=== PATIENT | male | born 1945 | race Caucasian/White ===

== ENCOUNTER 2022-11-27 03:09 | Emergency (ER) | payer MEDICARE ==
--- OUTSIDE RECORDS SUMMARY | 2022-11-27 03:13 | XMS REPORT | Continuity of Care Document ---
:[address] [facility] t Address [address] [place] [address] Care Team Providers Name Role Phone Juan Antonio Butler Attending Clinician Unavailable David Gray Attending Clinician Marina_Adolfo Attending Clinician Unavailable Sindy Montero Attending Clinician Mayur Attending Clinician Unavailable Chhaya Montero Attending Clinician Marina_S Admitting Clinician Unavailable BWsb Admitting Clinician Unavailable Payers Payer Name Policy Type Policy Effective Date Expiration Date Sour ce Number [employer] [id number] 2021 (MEDICARE 00:00:00 REPLACEMENT HMO) [place] [address] [id number] 2021 [facility] 00:00:00 - [facility] Problems Condition Condition Condition Status Onset Resolution Last Treating Co mments Source Name Details Category Date Date Treatment Clinician Date Malignant Malignant Problem 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 urinary Medical tract Center symptoms, symptom details unspecifie d [id number] Type 2 Problem Common diabetes [facility] mellitus - [facility] with [facility] long-term current use of insulin Tobacco Nicotine Problem Common user dependence [facility] , - [facility] cigarettes [facility] uncomplica Medica l [facility] [id number] Mixed Problem Common hyperlipid [facility] emia - [facility] [id number] Malignant Problem Com mon neoplasm Spirit of colon, - [facility]I unspecifie [facility] d part [facility] colon [facility] Malignant Malignant Problem Com mon tumor of neoplasm [facility] anus of anus [facility] Allergies, Adverse Reactions, Alerts This patient has no known allergies or adverse reactions. Social History Social Habit Start Date Stop Date Quantity Comments Source History of Tobacco Current Smoker Co mmon [facility] - [facility] Use [facility] Sex Assigned At Com mon [facility] - [facility] Smoking Status Start Date Stop Date Source Current Smoker 2022-09-30 00:00:00 [facility] - [facility] Medications Ordered Filled Start Stop Current Ordering Indication Dosage Frequency Signature Comments Components Source Medication Medication Date Date Medication? Clinician (SIG) Name Name Vitamin C Vitamin C No 1{table QD Vitamin C 1000 MG 1000 MG t} 1000 MG Vitamin D3 Vitamin D3 No Vitamin D3 125 MCG 125 MCG 125 MCG (5000 UT) (5000 UT) (5000 UT) Hyoscyamine Hyoscyamine No 1{table 6xD Hyoscyamin Sulfate Sulfate t_as_ne e Sulfate 0.125 MG 0.125 MG eded} 0.125 MG Tamsulosin Tamsulosin No 1{capsu QD Tamsulosin HCl 0.4 MG HCl 0.4 MG le} HCl 0.4 MG Super B Super B No Super B Complex Complex Complex Zinc 50 MG Zinc 50 MG No 1{table QD Zinc 50 MG t} cloNIDine cloNIDine No 1{table BID cloNIDine HCl 0.2 MG HCl 0.2 MG t} HCl 0.2 MG Ondansetron Ondansetron No 1{table QD Ondansetro 4 MG 4 MG t_on_ n 4 MG e_tongu e_and_a llow_to _dissol ve} Losartan Losartan No 1{table QD Losartan Potassium-H Potassium-H t} Potassium- CTZ 100-25 CTZ 100-25 HCTZ MG MG 100-25 MG Aspir-81 81 Aspir-81 81 No 1{table QD Aspir-81 MG MG t} 81 MG Bicalutamid Bicalutamid No 1{table QD Bicalutami e 50 MG e 50 MG t} de 50 MG metFORMIN metFORMIN No 1{table QD metFORMIN HCl 500 MG HCl 500 MG t_with_ HCl 500 MG a_meal} Atorvastati Atorvastati No 1{table QD Atorvastat n Calcium n Calcium t} in Calcium 20 MG 20 MG 20 MG amLODIPine amLODIPine No 1{table QD amLODIPine Besylate 5 Besylate 5 t} Besylate 5 MG MG MG Vitamin C Vitamin C No 1{table QD Vitamin C 1000 MG 1000 MG t} 1000 MG Vitamin D3 Vitamin D3 No Vitamin D3 125 MCG 125 MCG 125 MCG (5000 UT) (5000 UT) (5000 UT) Hyoscyamine Hyoscyamine No 1{table 6xD Hyoscyamin Sulfate Sulfate t_as_ne e Sulfate 0.125 MG 0.125 MG eded} 0.125 MG Tamsulosin Tamsulosin No 1{capsu QD Tamsulosin HCl 0.4 MG HCl 0.4 MG le} HCl 0.4 MG Super B Super B No Super B Complex Complex Complex Zinc 50 MG Zinc 50 MG No 1{table QD Zinc 50 MG t} cloNIDine cloNIDine No 1{table BID cloNIDine HCl 0.2 MG HCl 0.2 MG t} HCl 0.2 MG Ondansetron Ondansetron No 1{table QD Ondansetro 4 MG 4 MG t_on_th n 4 MG e_tongu e_and_a llow_to _dissol ve} Losartan Losartan No 1{table QD Losartan Potassium-H Potassium-H t} Potassium- CTZ 100-25 CTZ 100-25 HCTZ MG MG 100-25 MG Tamsulosin Tamsulosin No 1{capsu QD Tamsulosin HCl 0.4 MG HCl 0.4 MG le} HCl 0.4 MG metFORMIN metFORMIN No 1{table QD metFORMIN HCl 500 MG HCl 500 MG t_with_ HCl 500 MG a_meal} Bicalutamid Bicalutamid No 1{table QD Bicalutami e 50 MG e 50 MG t} de 50 MG hydroCHLORO hydroCHLORO No 1{table QD hydroCHLOR thiazide 25 thiazide 25 t_in_th Othiazide MG MG e_morni 25 MG ng} Calcium Calcium No Calcium Aspir-81 81 Aspir-81 81 No 1{table QD Aspir-81 MG MG t} 81 MG Vitamin D3 Vitamin D3 No Vitamin D3 125 MCG 125 MCG 125 MCG (5000 UT) (5000 UT) (5000 UT) Losartan Losartan No 1{table QD Losartan Potassium-H Potassium-H t} Potassium- CTZ 100-25 CTZ 100-25 HCTZ MG MG 100-25 MG cloNIDine cloNIDine No 1{table BID cloNIDine HCl 0.2 MG HCl 0.2 MG t} HCl 0.2 MG Super B Super B No Super B Complex Complex Complex Vitamin C Vitamin C No 1{table QD Vitamin C 1000 MG 1000 MG t} 1000 MG Hyoscyamine Hyoscyamine No 1{table 6xD Hyoscyamin Sulfate Sulfate t_as_ne e Sulfate 0.125 MG 0.125 MG eded} 0.125 MG amLODIPine amLODIPine No 1{table QD amLODIPine Besylate 5 Besylate 5 t} Besylate 5 MG MG MG Zinc 50 MG Zinc 50 MG No 1{table QD Zinc 50 MG t} Ondansetron Ondansetron No 1{table QD Ondansetro 4 MG 4 MG t_on_th n 4 MG e_tongu e_and_a llow_to _dissol ve} Atorvastati Atorvastati No 1{table QD Atorvastat n Calcium n Calcium t} in Calcium 20 MG 20 MG 20 MG Hyoscyamine Hyoscyamine No 1{table 6xD Hyoscyamin Sulfate Sulfate t_as_ne e Sulfate 0.125 MG 0.125 MG eded} 0.125 MG cloNIDine cloNIDine No 1{table BID cloNIDine HCl 0.2 MG HCl 0.2 MG t} HCl 0.2 MG amLODIPine amLODIPine No 1{table QD amLODIPine Besylate 5 Besylate 5 t} Besylate 5 MG MG MG Calcium Calcium No Calcium Atorvastati Atorvastati No 1{table QD Atorvastat n Calcium n Calcium t} in Calcium 20 MG 20 MG 20 MG Zinc 50 MG Zinc 50 MG No 1{table QD Zinc 50 MG t} Tamsulosin Tamsulosin No 1{capsu QD Tamsulosin HCl 0.4 MG HCl 0.4 MG le} HCl 0.4 MG hydroCHLORO hydroCHLORO No 1{table QD hydroCHLOR thiazide 25 thiazide 25 t_in_th Othiazide MG MG e_morni 25 MG ng} metFORMIN metFORMIN No 1{table QD metFORMIN HCl 500 MG HCl 500 MG t_with_ HCl 500 MG a_meal} Vitamin C Vitamin C No 1{table QD Vitamin C 1000 MG 1000 MG t} 1000 MG Aspir-81 81 Aspir-81 81 No 1{table QD Aspir-81 MG MG t} 81 MG Losartan Losartan No 1{table QD Losartan Potassium-H Potassium-H t} Potassium- CTZ 100-25 CTZ 100-25 HCTZ MG MG 100-25 MG Vitamin D3 Vitamin D3 No Vitamin D3 125 MCG 125 MCG 125 MCG (5000 UT) (5000 UT) (5000 UT) Super B Super B No Super B Complex Complex Complex Ondansetron Ondansetron No 1{table QD Ondansetro 4 MG 4 MG t_on n 4 MG e_tongu e_and_a llow_to _dissol ve} Multivitami Multivitami No Multivitam n n in Bicalutamid Bicalutamid No 1{table QD Bicalutami e 50 MG e 50 MG t} de 50 MG Atorvastati Atorvastati No 1{table QD Atorvastat n Calcium n Calcium t} in Calcium 20 MG 20 MG 20 MG hydroCHLORO hydroCHLORO No 1{table QD hydroCHLOR thiazide 25 thiazide 25 t_in_ Othiazide MG MG e_morni 25 MG ng} Zinc 50 MG Zinc 50 MG No 1{table QD Zinc 50 MG t} Hyoscyamine Hyoscyamine No 1{table 6xD Hyoscyamin Sulfate Sulfate t_as_ne e Sulfate 0.125 MG 0.125 MG eded} 0.125 MG cloNIDine cloNIDine No 1{table BID cloNIDine HCl 0.2 MG HCl 0.2 MG t} HCl 0.2 MG amLODIPine amLODIPine No 1{table QD amLODIPine Besylate 5 Besylate 5 t} Besylate 5 MG MG MG Calcium Calcium No Calcium Bicalutamid Bicalutamid No 1{table QD Bicalutami e 50 MG e 50 MG t} de 50 MG Aspir-81 81 Aspir-81 81 No 1{table QD Aspir-81 MG MG t} 81 MG Vitamin D3 Vitamin D3 No Vitamin D3 125 MCG 125 MCG 125 MCG (5000 UT) (5000 UT) (5000 UT) Ondansetron Ondansetron No 1{table QD Ondansetro 4 MG 4 MG t_on_th n 4 MG e_tongu e_and_a llow_to _dissol ve} Vitamin C Vitamin C No 1{table QD Vitamin C 1000 MG 1000 MG t} 1000 MG Tamsulosin Tamsulosin No 1{capsu QD Tamsulosin HCl 0.4 MG HCl 0.4 MG le} HCl 0.4 MG Super B Super B No Super B Complex Complex Complex metFORMIN metFORMIN No 1{table QD metFORMIN HCl 500 MG HCl 500 MG t_with_ HCl 500 MG a_meal} Losartan Losartan No 1{table QD Losartan Potassium-H Potassium-H t} Potassium- CTZ 100-25 CTZ 100-25 HCTZ MG MG 100-25 MG Multivitami Multivitami No Multivitam n n in Atorvastati Atorvastati No 1{table QD Atorvastat n Calcium n Calcium t} in Calcium 20 MG 20 MG 20 MG hydroCHLORO hydroCHLORO No 1{table QD hydroCHLOR thiazide 25 thiazide 25 t_in_th Othiazide MG MG e_morni 25 MG ng} Zinc 50 MG Zinc 50 MG No 1{table QD Zinc 50 MG t} Hyoscyamine Hyoscyamine No 1{table 6xD Hyoscyamin Sulfate Sulfate t_as_ne e Sulfate 0.125 MG 0.125 MG eded} 0.125 MG cloNIDine cloNIDine No 1{table BID cloNIDine HCl 0.2 MG HCl 0.2 MG t} HCl 0.2 MG amLODIPine amLODIPine No 1{table QD amLODIPine Besylate 5 Besylate 5 t} Besylate 5 MG MG MG Calcium Calcium No Calcium Bicalutamid Bicalutamid No 1{table QD Bicalutami e 50 MG e 50 MG t} de 50 MG Aspir-81 81 Aspir-81 81 No 1{table QD Aspir-81 MG MG t} 81 MG Vitamin D3 Vitamin D3 No Vitamin D3 125 MCG 125 MCG 125 MCG (5000 UT) (5000 UT) (5000 UT) Ondansetron Ondansetron No 1{table QD Ondansetro 4 MG 4 MG t_on_ n 4 MG e_tongu e_and_a llow_to _dissol ve} Vitamin C Vitamin C No 1{table QD Vitamin C 1000 MG 1000 MG t} 1000 MG Vitamin D3 Vitamin D3 No Vitamin D3 125 MCG 125 MCG 125 MCG (5000 UT) (5000 UT) (5000 UT) Tamsulosin Tamsulosin No 1{capsu QD Tamsulosin HCl 0.4 MG HCl 0.4 MG le} HCl 0.4 MG Super B Super B No Super B Complex Complex Complex metFORMIN metFORMIN No 1{table QD metFORMIN HCl 500 MG HCl 500 MG t_with_ HCl 500 MG a_meal} Losartan Losartan No 1{table QD Losartan Potassium-H Potassium-H t} Potassium- CTZ 100-25 CTZ 100-25 HCTZ MG MG 100-25 MG Multivitami Multivitami No Multivitam n n in Atorvastati Atorvastati No 1{table QD Atorvastat n Calcium n Calcium t} in Calcium 20 MG 20 MG 20 MG Super B Super B No Super B Complex Complex Complex Aspir-81 81 Aspir-81 81 No 1{table QD Aspir-81 MG MG t} 81 MG metFORMIN metFORMIN No 1{table QD metFORMIN HCl 500 MG HCl 500 MG t_with_ HCl 500 MG a_meal} Losartan Losartan No 1{table QD Losartan Potassium-H Potassium-H t} Potassium- CTZ 100-25 CTZ 100-25 HCTZ MG MG 100-25 MG Zinc 50 MG Zinc 50 MG No 1{table QD Zinc 50 MG t} Vitamin C Vitamin C No 1{table QD Vitamin C 1000 MG 1000 MG t} 1000 MG cloNIDine cloNIDine No 1{table BID cloNIDine HCl 0.2 MG HCl 0.2 MG t} HCl 0.2 MG amLODIPine amLODIPine No 1{table QD amLODIPine Besylate 5 Besylate 5 t} Besylate 5 MG MG MG Tamsulosin Tamsulosin No 1{capsu QD Tamsulosin HCl 0.4 MG HCl 0.4 MG le} HCl 0.4 MG amLODIPine amLODIPine No 1{table QD amLODIPine Besylate 5 Besylate 5 t} Besylate 5 MG MG MG Atorvastati Atorvastati No 1{table QD Atorvastat n Calcium n Calcium t} in Calcium 20 MG 20 MG 20 MG metFORMIN metFORMIN No 1{table QD metFORMIN HCl 500 MG HCl 500 MG t_with_ HCl 500 MG a_meal} Aspir-81 81 Aspir-81 81 No 1{table QD Aspir-81 MG MG t} 81 MG Super B Super B No Super B Complex Complex Complex cloNIDine cloNIDine No 1{table BID cloNIDine HCl 0.2 MG HCl 0.2 MG t} HCl 0.2 MG Vitamin D3 Vitamin D3 No Vitamin D3 125 MCG 125 MCG 125 MCG (5000 UT) (5000 UT) (5000 UT) Zinc 50 MG Zinc 50 MG No 1{table QD Zinc 50 MG t} Vitamin C Vitamin C No 1{table QD Vitamin C 1000 MG 1000 MG t} 1000 MG Losartan Losartan No 1{table QD Losartan Potassium-H Potassium-H t} Potassium- CTZ 100-25 CTZ 100-25 HCTZ MG MG 100-25 MG Tamsulosin Tamsulosin No 1{capsu QD Tamsulosin HCl 0.4 MG HCl 0.4 MG le} HCl 0.4 MG amLODIPine amLODIPine No 1{table QD amLODIPine Besylate 5 Besylate 5 t} Besylate 5 MG MG MG Atorvastati Atorvastati No 1{table QD Atorvastat n Calcium n Calcium t} in Calcium 20 MG 20 MG 20 MG metFORMIN metFORMIN No 1{table QD metFORMIN HCl 500 MG HCl 500 MG t_with_ HCl 500 MG a_meal} Aspir-81 81 Aspir-81 81 No 1{table QD Aspir-81 MG MG t} 81 MG Super B Super B No Super B Complex Complex Complex cloNIDine cloNIDine No 1{table BID cloNIDine HCl 0.2 MG HCl 0.2 MG t} HCl 0.2 MG Vitamin D3 Vitamin D3 No Vitamin D3 125 MCG 125 MCG 125 MCG (5000 UT) (5000 UT) (5000 UT) Zinc 50 MG Zinc 50 MG No 1{table QD Zinc 50 MG t} Vitamin C Vitamin C No 1{table QD Vitamin C 1000 MG 1000 MG t} 1000 MG Losartan Losartan No 1{table QD Losartan Potassium-H Potassium-H t} Potassium- CTZ 100-25 CTZ 100-25 HCTZ MG MG 100-25 MG Zinc 50 MG Zinc 50 MG No 1{table QD Zinc 50 MG t} Atorvastati Atorvastati No 1{table QD Atorvastat n Calcium n Calcium t} in Calcium 20 MG 20 MG 20 MG Aspir-81 81 Aspir-81 81 No 1{table QD Aspir-81 MG MG t} 81 MG Super B Super B No Super B Complex Complex Complex Vitamin D3 Vitamin D3 No Vitamin D3 125 MCG 125 MCG 125 MCG (5000 UT) (5000 UT) (5000 UT) amLODIPine amLODIPine No 1{table QD amLODIPine Besylate 5 Besylate 5 t} Besylate 5 MG MG MG Vitamin C Vitamin C No 1{table QD Vitamin C 1000 MG 1000 MG t} 1000 MG cloNIDine cloNIDine No 1{table BID cloNIDine HCl 0.2 MG HCl 0.2 MG t} HCl 0.2 MG Losartan Losartan No 1{table QD Losartan Potassium-H Potassium-H t} Potassium- CTZ 100-25 CTZ 100-25 HCTZ MG MG 100-25 MG Tamsulosin Tamsulosin No 1{capsu QD Tamsulosin HCl 0.4 MG HCl 0.4 MG le} HCl 0.4 MG metFORMIN metFORMIN No 1{table QD metFORMIN HCl 500 MG HCl 500 MG t_with_ HCl 500 MG a_meal} Aspir-81 81 Aspir-81 81 No 1{table QD Aspir-81 MG MG t} 81 MG Bicalutamid Bicalutamid No 1{table QD Bicalutami e 50 MG e 50 MG t} de 50 MG metFORMIN metFORMIN No 1{table QD metFORMIN HCl 500 MG HCl 500 MG t_with_ HCl 500 MG a_meal} Atorvastati Atorvastati No 1{table QD Atorvastat n Calcium n Calcium t} in Calcium 20 MG 20 MG 20 MG amLODIPine amLODIPine No 1{table QD amLODIPine Besylate 5 Besylate 5 t} Besylate 5 MG MG MG Tamsulosin Tamsulosin 2020- No 1{capsu QD Tamsulosin HCl 0.4 MG HCl 0.4 MG 12-28 le} HCl 0.4 MG 00:00 :00 Immunizations Ordered Immunization Filled Immunization Date Status Commen ts Source Name Name FluAD FluAD 2021-03-19 Completed [facility] 10:32:00 - [facility] FluAD FluAD 2021-03-19 Completed [facility] 10:32:00 - [facility] FluAD FluAD 2021-03-19 Completed [facility] 10:32:00 - [facility] FluAD FluAD 2021-03-19 Completed [facility] 10:32:00 - [facility] FluAD FluAD 2021-03-19 Completed [facility] 10:32:00 - [facility] FluAD FluAD 2021-03-19 Completed [facility] 10:32:00 - [facility] FluAD FluAD 2021-03-19 Completed [facility] 10:32:00 - [facility] FluAD FluAD 2021-03-19 Completed [facility] 10:32:00 - [facility] FluAD FluAD 2021-03-19 Completed [facility] 10:32:00 - [facility] FluAD FluAD 2021-03-19 Completed [facility] 10:32:00 - [facility] Vital Signs Vital Name Observation Time Observation Value Comments Source height 2022-03-31 10:20:00 70 [in_i] Common [facility] weight 2022-03-31 10:20:00 183 [lb_av] [facility] temperature 2022-03-31 10:20:00 97.7 [degF] [facility] bmi 2022-03-31 10:20:00 26.25 kg/m2 [facility] oximetry 2022-03-31 10:20:00 99 % [facility] respiratory rate 2022-03-31 10:20:00 18 /min Comm on [facility] blood pressure 2022-03-31 10:20:00 138 mm[Hg] Common [facility] - systolic [facility] blood pressure 2022-03-31 10:20:00 70 mm[Hg] Common [facility] - diastolic [facility] height 2021-07-13 09:20:00 70 [in_i] [facility] weight 2021-07-13 09:20:00 191.6 [lb_av] [facility] temperature 2021-07-13 09:20:00 97.9 [degF] Common [facility] bmi 2021-07-13 09:20:00 27.49 kg/m2 [facility] oximetry 2021-07-13 09:20:00 93 % [facility] respiratory rate 2021-07-13 09:20:00 16 /min Comm on [facility] blood pressure 2021-07-13 09:20:00 135 mm[Hg] Common [facility] - systolic [facility] blood pressure 2021-07-13 09:20:00 71 mm[Hg] Common [facility] - diastolic [facility] height 2021-06-16 08:40:00 70 [in_i] [facility] weight 2021-06-16 08:40:00 193.2 [lb_av] [facility] temperature 2021-06-16 08:40:00 97.7 [degF] Common S [facility] bmi 2021-06-16 08:40:00 27.72 kg/m2 Common S [facility] oximetry 2021-06-16 08:40:00 96 % Common [facility] respiratory rate 2021-06-16 08:40:00 16 /min Comm on [facility] blood pressure 2021-06-16 08:40:00 128 mm[Hg] Common [facility] - systolic [facility] blood pressure 2021-06-16 08:40:00 65 mm[Hg] Common [facility] - diastolic [facility] height 2021-03-04 11:00:00 70 [in_i] Common S [facility] weight 2021-03-04 11:00:00 186.6 [lb_av] [facility] temperature 2021-03-04 11:00:00 97.2 [degF] [facility] bmi 2021-03-04 11:00:00 26.77 kg/m2 [facility] S [facility] oximetry 2021-03-04 11:00:00 96 % [facility] respiratory rate 2021-03-04 11:00:00 17 /min Comm on [facility] blood pressure 2021-03-04 11:00:00 137 mm[Hg] Common [facility] - systolic [facility] blood pressure 2021-03-04 11:00:00 72 mm[Hg] [facility] diastolic [facility] Procedures This patient has no known procedures. Encounters Start End Encounter Admission Attending Care Care Encounter Source Date/Time Date/Time Type Type Clinicians Facility Department ID 2022-09-28 Outpatient Butler, STLMLC STLC [id number] Common 08:27:01 Juan Antonio [id number] [facility] 2022-03-29 Outpatient Butler, STLMLC STLC [id number] Common 10:39:02 Juan Antonio [id number] [facility] 2021-09-25 Outpatient Butler, STLMLC STLC [id number] Common 10:16:02 Juan Antonio [facility] 2021-07-01 Outpatient Butler, STLMLC STLC [id number] Common 14:33:31 Juan Antonio [facility] 2021-07-01 Outpatient Butler, STLMLC STLC [id number] Common 14:04:07 Juan Antonio [id number] [facility] 2022-07-12 2022-07-12 [id number] Co mmon 00:00:00 00:00:00 [facility] 2022-07-09 2022-07-09 CAV Salli [id number]. [id number]. CLAC [id number] [facility] 21:00:00 22:00:00 Fulminyohan [id number] Medical [id number] 2022-07-09 2022-07-09 Outpatient Fulminar_S DMG DMG [id number] [facility] 00:00:00 00:00:00 0203 [facility] 2022-07-09 2022-07-09 Outpatient Fulminar_S DMG DMG [id number] [facility] 00:00:00 00:00:00 0506 Medica l Group 2022-04-07 2022-04-07 CAV Vonja [id number]. [id number]. CLAC [id number] [facility] 14:00:00 14:30:00 Revisit: Winston [id number] Medical Gap [id number] Closure & [id number] Clinical Check-in 2022-04-06 2022-04-06 [facility]patient [facility] [id number] [facility] 00:00:00 00:00:00 1101 Medica l Group 2022-03-31 2022-03-31 OFFICE STLMLC STLMLC [id number] Co mmon 00:00:00 00:00:00 VISIT [facility] ESTAB PT - CHI LEVEL 4 [facility] 2022-01-27 2022-01-[address] [facility] [id number] [facility] 00:00:00 00:00:00 0824 Medica l Group 2021-12-18 2021-12-18 [facility] [id number] [facility] 06:13:00 06:13:00 0715 [facility] l [facility] 2021-11-03 2021-11-03 (TEL) STLMLC STLMLC [id number] Co mmon 00:00:00 00:00:00 [facility] 2021-10-14 2021-10-14 (TEL) STLMLC STLMLC [id number] Co mmon 00:00:00 00:00:00 [facility] 2021-10-05 2021-10-05 CAV Chhaya [id number]. [id number]. CLAC [id number] [facility] 19:30:00 20:30:00 [place] [id number] [facility] Medical [id number] 2021-07-13 2021-07-13 OFFICE STLMLC STLMLC [id number] Co mmon 00:00:00 00:00:00 VISIT [facility] ESTAB PT - [facility]I LEVEL 4 [facility] 2021-06-25 2021-06-25 (TEL) STLMLC STLMLC [id number] Co mmon 00:00:00 00:00:00 [facility] 2021-06-16 2021-06-16 PREV VISIT STLMLC STLMLC [id number] Common 00:00:00 00:00:00 EST AGE 66 Spi rit & OVER [facility] 2021-03-31 2021-03-31 (TEL) STLMLC STLMLC [id number] Co mmon 00:00:00 00:00:00 [facility] - [facility] 2021-03-19 2021-03-19 (INJ) STLMLC STLMLC [id number] Co mmon 00:00:00 00:00:00 Injection Spir it - CHI [facility] 2021-03-04 2021-03-[address] [facility] [facility] [id number] Co mmon 00:00:00 00:00:00 VISIT NEW Spir it PT LEVEL 3 - [facility] 2021-02-18 2021-02-18 [facility]patient [facility] [id number] [facility] 08:00:00 08:00:00 0915 Medica l Group 2021-01-09 2021-01-09 [facility]patient [facility] [id number] [facility] 11:00:00 11:00:00 0806 Medica l Group Results Test Description Test Time Test Comments Results Result Comments Source Lipid Panel With LDL/HDL Ratio 2021-06-16 00:00:00 Test Item Value Reference Range Interpretation Comme nts Cholesterol, Total (test code = 2093-3) 142 100-199 Triglycerides (test code = 2571-8) 82 0-149 HDL Cholesterol (test code = 2085-9) 52 >39 Hepatitis Panel (4)2021-06-16 00:00:00 Test Item Value Reference Range Interpretation Comments Hep A Ab, IgM (test code = 85748-1) Negative Negative HBsAg Screen (test code = 5196-1) Negative Negative Hep B Core Ab, IgM (test code = Negative Negative 12637-2) UA/M w/rflx Culture, [id number] 00:00:00 Test Item Value Reference Range Interpretation Comments Specific [place] (test code = 1.019 1.005-1.030 2965-2) pH (test code = 5803-2) 6.5 5.0-7.5 Urine-Color (test code = 5778-6) Yellow Yellow Appearance (test code = 5767-9) Clear Clear WBC Esterase (test code = 5799-2) Negative Negative Protein (test code = 12742-3) Negative Negative/Trace Glucose (test code = 2349-9) Negative Negative Ketones (test code = 2514-8) Negative Negative Occult Blood (test code = 5794-3) Negative Negative Bilirubin (test code = 5770-3) Negative Negative Urobilinogen,Semi-Qn (test code = 0.2 0.2-1.0 ) Nitrite, Urine (test code = Negative Negative 5802-4) Microscopic Examination (test code See below: = 23819-8) Urinalysis Reflex (test code = UNLOINC) Prostate-Specific Ag, [id number] 00:00:00 Test Item Value Reference Range Interpretation Comments Prostate Specific Ag (test code = 1.6 0.0-4.0 2857-1) Hemoglobin [id number] 00:00:00 Test Item Value Reference Range Interpretation Comments Hemoglobin A1c (test code = 4548-4) 6.5 4.8-5.6 Comp. Metabolic Panel (14) ([facility])2021-06-16 00:00:00 Test Item Value Reference Range Interpretation Comments Glucose (test code = 2345-7) 171 65-99 BUN (test code = 3094-0) 19 8-27 Creatinine (test code = 2160-0) 0.87 0.76-1.27 eGFR If NonAfricn Am (test code = 85 >59 09832-0) eGFR If Africn Am (test code = 97245-7) 98 >59 BUN/Creatinine Ratio (test code = 03-29 3097-3) Sodium (test code = 2951-2) 140 134-144 Potassium (test code = 2823-3) 3.8 3.5-5.2 Chloride (test code = 2075-0) 101 96-106 Carbon Dioxide, Total (test code = 27 -29 2028-02) Calcium (test code = 91801-3) 9.1 8.6-10.2 Protein, Total (test code = 2885-2) 7.0 6.0-8.5 Albumin (test code = 1751-7) 4.1 3.7-4.7 Globulin, Total (test code = 48727-4) 2.9 1.5-4.5 A/G Ratio (test code = 1759-0) 1.4 1.2-2.2 Bilirubin, Total (test code = 1974-) 1.0 0.0-1.2 Alkaline Phosphatase (test code = 62 44-121 6768-6) AST (SGOT) (test code = 1920-8) 15 0-40 ALT (SGPT) (test code = 1742-6) 19 0-44 Uric Acid, [id number] 00:00:00 Test Item Value Reference Range Interpretation Comments Uric Acid (test code = 3084-1) 5.0 3.8-8.4 CBC With Differential/[id number] 00:00:00 Test Item Value Reference Range Interpretation Comments WBC (test code = 6690-2) 5.6 3.4-10.8 RBC (test code = 789-8) 4.51 4.14-5.80 Hemoglobin (test code = 718-7) 13.1 13.0-17.7 Hematocrit (test code = 4544-3) 39.6 37.5-51.0 MCV (test code = 787-2) 88 79-97 MCH (test code = 785-6) 29.0 26.6-33.0 MCHC (test code = 786-4) 33.1 31.5-35.7 RDW (test code = 788-0) 12.6 11.6-15.4 Platelets (test code = 777-3) 151 150-450 Neutrophils (test code = 770-8) 61 Not Estab. Lymphs (test code = 736-9) 28 Not Estab. Monocytes (test code = 5905-5) 6 Not Estab. Eos (test code = 713-8) 4 Not Estab. Basos (test code = 706-2) 1 Not Estab. Immature Cells (test code = UNLOINC) Neutrophils (Absolute) (test code = 3.4 1.4-7.0 751-8) Lymphs (Absolute) (test code = 731-0) 1.6 0.7-3.1 Monocytes(Absolute) (test code = 742-7) 0.3 0.1-0.9 Eos (Absolute) (test code = 711-2) 0.2 0.0-0.4 Baso (Absolute) (test code = 704-7) 0.0 0.0-0.2 Immature Granulocytes (test code = 0 Not Estab. 55347-3) Immature Grans (Abs) (test code = 0.0 0.0-0.1 51223-6) NRBC (test code = 94084-7) Hematology Comments: (test code = 96884-6) TSH reflex to [id number] 00:00:00 Test Item Value Reference Range Interpretation Comments TSH (test code = 78261-7) 0.933 0.450-4.500
[2022-11-27 03:53] LABS: Absolute Lymphocytes (CBC) 0.7 K/uL (0.7-4.9); Hematocrit 45.3 % (39.6-49.0); MCV 89.4 fL (80-100); MPV 7.6 fL (7.6-11.3); RBC Red Blood Cell Count 5.06 M/uL (4.33-5.43)
[2022-11-27] MEDS ORDERED: MORPHINE 4 MG/ML SYR ONE ×2 (03:59→07:01)
[2022-11-27] MEDS ORDERED: ONDANSETRON 4 MG/2 ML VIAL ONE ×2 (04:00→07:01)
[2022-11-27] MEDS ORDERED: NA CHLORIDE 0.9% 1,000 ML ONE ×2 (04:00→11:39)
[2022-11-27] MEDS ORDERED: FAMOTIDINE 20 MG/2 ML VIAL IV ONE (04:00)
[2022-11-27 04:07] LABS: Specific Gravity 1.018 (1.005-1.030); Urine Bacteria <20 /HPF (<20); Urine Bilirubin NEGATIVE (Negative); Urine Blood Negative (Negative); Urine Clarity Extremely Turbid (Clear); Urine Color Yellow (Yellow); Urine Glucose NEGATIVE (Negative); Urine Mucus Slight /HPF (None Seen); Urine Protein TRACE (Negative); Urine RBC <5 /HPF (None Seen); Urine Urobilinogen Normal (Normal)
[2022-11-27 04:09] LABS: Albumin 4.2 g/dL (3.4-5.0); Bilirubin Total 1.4 mg/dL (0.2-1.0); Potassium 3.4 mEq/L (3.5-5.1); Protein, Total 8.8 g/dL (6.4-8.2)
--- NOTE | 2022-11-27 06:47 | ER ---
Nurse's Notes [facility] Name: Jonnie Haney Age: 77 yrs Sex: Male : 1945 Arrival Date: 11/27/2022 Time: 03:09 Bed 15 Private MD: Diagnosis: Acute small bowel obstruction. Mesenteric edema.;Abdominal pain, Generalized Presentation: 11/27 03:22 Chief complaint: Patient states: generalized abdominal pain of 6 with distention,onset pf1 yesterday at 1700 with generalized weakness,onset 1 hour ago. Patient denies any N/V/D. Patient stated LBM was yesterday AM with hard stool. Patient stated history of Colon and Prostate CA, currently in remission for 10 months. Coronavirus screen: Vaccine status: Patient reports receiving the 2nd dose of the covid vaccine. [employer]r Client denies travel out of the [place] in the last 14 days. At this time, the client does not indicate any symptoms associated with coronavirus-19. Ebola Screen: Patient negative for fever greater than or equal to 101.5 degrees Fahrenheit, and additional compatible Ebola Virus Disease symptoms. Initial Sepsis Screen: Does the patient meet any 2 criteria? HR > 90 bpm. No. Patient's initial sepsis screen is negative. Does the patient have a suspected source of infection? No. Patient's initial sepsis screen is negative. Risk Assessment: Do you want to hurt yourself or someone else? Patient reports no desire to harm self or others. 03:22 Method Of Arrival: Ambulatory pf1 03:22 Acuity: LOCO 3 pf1 Historical: - Allergies: 03:26 No Known Allergies; pf1 - Immunization history:: Adult Immunizations unknown. - Family history:: not pertinent. - Social history:: Smoking status: Patient denies any tobacco usage or history of. Screenin:21 [facility] ED Fall Risk Assessment (Adult) History of falling in the last 3 months, db including since admission No falls in past 3 months (0 pts) Confusion or Disorientation No (0 pts) Intoxicated or Sedated No (0 pts) Impaired Gait No (0 pts) Mobility Assist Device Used No (0 pt) Altered Elimination No (0 pt) Score/Fall Risk Level 0 - 2 = Low Risk Oriented to surroundings, Maintained a safe environment. 12:50 Abuse screen: Denies threats or abuse. Denies injuries from another. Nutritional db screening: No deficits noted. Tuberculosis screening: No symptoms or risk factors identified. Assessment: 04:00 General: Appears uncomfortable, Behavior is calm, cooperative. General: Reports ll3 Generalized weakness. Pain: Complains of pain in abdomen Pain does not radiate. Pain currently is 8 out of 10 on a pain scale. Quality of pain is described as Pain began suddenly, Is continuous. GI: Bowel sounds present X 4 quads. Abd is soft and non tender X 4 quads. Reports lower abdominal pain, upper abdominal pain. Derm: Skin is pink, warm \T\ dry. Musculoskeletal: Circulation, motion, and sensation intact. 05:04 Reassessment: Patient and/or family updated on plan of care and expected duration. Pain ll3 level reassessed. Patient is alert, oriented x 3, equal unlabored respirations, skin warm/dry/pink. Patient states feeling better. Patient states symptoms have improved. 07:05 Reassessment: Patient appears in no apparent distress at this time. Patient and/or db family updated on plan of care and expected duration. Pain level reassessed. Patient is alert, oriented x 3, equal unlabored respirations, skin warm/dry/pink. 07:45 Reassessment: patient ambulatory to restroom with steady gate. db 11:37 Reassessment: called to give report to [facility] no answer. Will call back. db 11:52 Reassessment: Called called to given report 2nd time transferred to ER and call db disconnected. Notified my charge. Will call back. 11:55 Reassessment: Report given to JIMMY Escalona at [place]. db 12:30 Reassessment: PATIENT TRANSPORTED VIA EMS. db Vital Signs: 03:22 BP 150 / 89; Pulse 107; Resp 18; Temp 97.7; Pulse Ox 94% on R/A; Weight 81.19 kg; pf1 Height 5 ft. 9 in. ; Pain 6/10; 05:01 BP 134 / 75; Pulse 92; Resp 16; Pulse Ox 90% on R/A; ll3 06:00 BP 150 / 83; Pulse 97; Resp 16; Pulse Ox 91% on R/A; ll3 11:00 BP 135 / 76; Pulse 88; Resp 16; Pulse Ox 91% on R/A; db 12:00 BP 151 / 71; Pulse 109; Resp 16; Pulse Ox 93% on R/A; db 03:22 Body Mass Index 26.43 (81.19 kg, 175.26 cm) pf1 03:22 Pain Scale: Adult pf1 ED Course: 03:12 Patient arrived in ED. jj6 03:26 Triage completed. pf1 03:35 Morris Rice MD is Attending Physician. sp4 03:45 CBC with Diff Sent. bc6 03:45 CMP Sent. bc6 03:45 Lipase Sent. bc6 03:45 Inserted saline lock: 22 gauge in right antecubital area, using aseptic technique. bc6 03:48 Brendon Piedra, RN is Primary Nurse. jb4 03:54 Urinalysis w/ reflexes Sent. bc6 04:44 CT Abd/Pelvis - IV Contrast Only In Process Unspecified. EDMS 07:29 Attending Physician role handed off by Morris Rice MD bridget 07:29 Caden Lazar MD is Attending Physician. bridget 08:20 Attending Physician role handed off by Caden Lazar MD sp4 08:20 Morris Rice MD is Attending Physician. sp4 08:21 Katie Escalera, RN is Primary Nurse. db 08:21 NGT: inserted 18 Fr. via left nare. to intermittent suction. Returned gastric contents. db Patient tolerated well. 08:50 Abdomen 1 View XRAY In Process Unspecified. EDMS 09:48 Attending Physician role handed off by Morris Rice MD bridget 09:48 Caden Lazar MD is Attending Physician. bridget 11:34 Patient has correct armband on for positive identification. Bed in low position. Call db light in reach. Side rails up X 1. Client placed on continuous cardiac and pulse oximetry monitoring. NIBP monitoring applied. 12:50 No provider procedures requiring assistance completed. Patient transferred, IV remains db in place. 16:59 CALLED [facility] TO TRANSFER PT \T\730 IT WAS SHIFT CHANGE SO FOLLOWED UP AT 830 SPOKE kj1 WITH [facility] FAXED PT RECORDS \T\ 1000 CALLED TO FOLLOW UP DR TO DR \T\ 1030 ,1110 DR AN GAVE ADMIN APPROVAL PER Severino MENDEZ T/C. Administered Medications: 04:04 Drug: NS 0.9% IV 1000 ml Route: IV; Rate: 125 ml/hr; Site: right antecubital; jb4 12:49 Follow up: IV Status: Infusion continued upon transfer db 04:05 Drug: Ondansetron IVP 4 mg Route: IVP; Site: right antecubital; jb4 12:49 Follow up: Response: No adverse reaction db 04:05 Drug: morphine IVP or IV 4 mg Route: IVP; Infused Over: 4 mins; Site: right antecubital;jb4 12:50 Follow up: Response: No adverse reaction db 04:06 Drug: Famotidine IVP 20 mg Route: IVP; Site: right antecubital; jb4 12:49 Follow up: Response: No adverse reaction db 06:56 Drug: Ondansetron IVP 4 mg Route: IVP; Site: right antecubital; ll3 12:49 Follow up: Response: No adverse reaction db 06:57 Drug: morphine IVP or IV 4 mg Route: IVP; Infused Over: 4 mins; Site: right antecubital;ll3 12:49 Follow up: Response: No adverse reaction db 08:04 CANCELLED (Duplicate Order): Tetanus Toxoid,Adsorbed IM 0.5 ml IM once; Provide Vaccine [facility] Information Statement (VIS). 12:07 Drug: Piperacillin-Tazobactam IVPB 3.375 grams Route: IVPB; Infused Over: 60 mins; db Site: right antecubital; 12:49 Follow up: IV Status: Infusion continued upon transfer db 12:09 Drug: NS 0.9% IV 1000 ml Route: IV; Rate: 1 bolus; Site: right antecubital; db 12:48 Follow up: Response: No adverse reaction; IV Status: Infusion continued upon transfer db Medication: 12:50 VIS not applicable for this client. db Outcome: 06:46 ER care complete, transfer ordered by sp4 12:50 Transferred by ground EMS to [facility] Transfer form completed. db 12:50 Condition: stable 12:50 Instructed on the need for transfer. 12:52 Patient left the ED. db Signatures: Dispatcher [employer] EDCaden Parson MD MD cha Bryson, James RN RN jb4 Evelyn Dos Santos kj1 Annamarie Guerrero jj6 Aggie Olivo RN RN ll3 Katie Escalera, RN RN db Ana Paula Anders, RN RN pf1 Beverly Perea6 Morris Rice MD MD sp4
--- NOTE | 2022-11-27 06:47 | EDPHYS ---
Physician Documentation [facility] Name: Jonnie Haney Age: 77 yrs Sex: Male : 1945 Arrival Date: 11/27/2022 Time: 03:09 Bed 15 Private MD: Caden Villarreal HPI: 11/27 03:35 This 77 yrs old Male presents to ER via Ambulatory with complaints of sp4 Abdominal Pain, General Weakness. 06:34 77-year-old male with past medical history of colon cancer with history of prior sp4 partial colectomy and history of colostomy with colostomy reversal in February 2022 at the [facility]. Presents with moderate to severe acute abdominal pain onset several hours ago. . Historical: - Allergies: 03:26 No Known Allergies; pf1 - Immunization history:: Adult Immunizations unknown. - Family history:: not pertinent. - Social history:: Smoking status: Patient denies any tobacco usage or history of. ROS: 06:41 Constitutional: Negative for fever, chills, and weight loss, Eyes: Negative for injury, sp4 pain, redness, and discharge, ENT: Negative for injury, pain, and discharge, Neck: Negative for injury, pain, and swelling, Cardiovascular: Negative for chest pain, palpitations, and edema, Respiratory: Negative for shortness of breath, cough, wheezing, and pleuritic chest pain, Abdomen/GI: Negative for vomiting, diarrhea, and constipation, positive for abdominal pain and nausea. Back: Negative for injury and pain, : Negative for injury, bleeding, discharge, and swelling, MS/Extremity: Negative for injury and deformity, Skin: Negative for injury, rash, and discoloration, Neuro: Negative for headache, weakness, numbness, tingling, and seizure, Psych: Negative for depression, anxiety, Allergy/Immunology: Negative for hives, rash, and allergies Endocrine: Negative for neck swelling, polydipsia, polyuria, polyphagia, and weight changes Hematologic/Lymphatic: Negative for swollen nodes, abnormal bleeding, and unusual bruising Exam: 06:41 Constitutional: This is a well developed, well nourished patient who is awake, alert, sp4 and in no acute distress. Head/Face: Normocephalic, atraumatic. Eyes: Pupils equal round and reactive to light, extra-ocular motions intact. Lids and lashes normal. Conjunctiva and sclera are not injected. Cornea within normal limits. Periorbital areas with no swelling, redness, or edema. ENT: Nares patent. No nasal discharge, no septal abnormalities noted. Tympanic membranes are normal and external auditory canals are clear. Oropharynx with no redness, swelling, or masses, exudates, or evidence of obstruction, uvula midline. Mucous membranes moist. Neck: Trachea midline, no thyromegaly or masses palpated, and no cervical lymphadenopathy. Supple, full range of motion without nuchal rigidity, or vertebral point tenderness. Chest/axilla: Normal chest wall appearance and motion. Nontender with no deformity. No lesions are appreciated. Cardiovascular: Regular rate and rhythm with a normal S1 and S2. No gallops, murmurs, or rubs. Normal PMI, no JVD. No pulse deficits. Respiratory: Lungs have equal breath sounds bilaterally, clear to auscultation and percussion. No rales, rhonchi or wheezes noted. No increased work of breathing, no retractions or nasal flaring. Abdomen/GI: Soft, soft, diffuse tenderness. No rigidity. Back: No spinal tenderness. No costovertebral tenderness. Male : Normal genitalia with no discharge or lesions. Skin: Warm, dry with normal turgor. Normal color with no rashes, no lesions, and no evidence of cellulitis. MS/ Extremity: Pulses equal, no cyanosis. Neurovascular intact. Full, normal range of motion. Neuro: Awake and alert, GCS 15, oriented to person, place, time, and situation. Cranial nerves II-XII grossly intact. Motor strength 5/5 in all extremities. Sensory grossly intact. Psych: Awake, alert, with orientation to person, place and time. Behavior, mood, and affect are within normal limits Vital Signs: 03:22 BP 150 / 89; Pulse 107; Resp 18; Temp 97.7; Pulse Ox 94% on R/A; Weight 81.19 kg; pf1 Height 5 ft. 9 in. ; Pain 6/10; 05:01 BP 134 / 75; Pulse 92; Resp 16; Pulse Ox 90% on R/A; ll3 06:00 BP 150 / 83; Pulse 97; Resp 16; Pulse Ox 91% on R/A; ll3 11:00 BP 135 / 76; Pulse 88; Resp 16; Pulse Ox 91% on R/A; db 12:00 BP 151 / 71; Pulse 109; Resp 16; Pulse Ox 93% on R/A; db 03:22 Body Mass Index 26.43 (81.19 kg, 175.26 cm) pf1 03:22 Pain Scale: Adult pf1 MDM: 03:42 Patient medically screened. sp4 06:29 ED course: CT revealed distal small bowel obstruction with transition point sp4 demonstrated a right abdominal small bowel anastomosis site, associated mesenteric edema and trace free fluid suggesting early vascular venous compromise. No overt evidence of bowel ischemia at this time, rectosigmoid anastomosis appears patent without evidence of anastomotic failure. 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 Recommend abdomen pelvis CT or MRI follow-up in 2 years. 0.8 cm cystic focus along the inferior pancreatic body. Additional nonacute findings as above.. 06:43 Differential Diagnosis sepsis, Bowel obstruction, diverticulitis, colitis,.. Data sp4 reviewed: vital signs, nurses notes, lab test result(s), radiologic studies, CT scan. Consideration of Admission/Observation Patient was admitted/placed on observation. Escalation of care including admission/observation considered. Management of patient was discussed with the following: Residence Manager: Discussed with general surgeon who advised transfer to the [facility].. ED course: CBC is normal, CMP reveals mild hypokalemia potassium 3.4, glucose 166, bilirubin 1.4, lactic acid is normal 1.3. UA is normal. CAT scan revealed moderate fluid distention of the stomach, pathologic dilatation of small bowel with transition point right lower small bowel anastomosis site. With collapse of the terminal ileum. Associated mesenteric edema and trace layering free fluid along the right greater paracolic gutter and layering within the pelvic cul-de-sac. Suggesting early vascular venous compromise. Rectosigmoid anastomosis demonstrated without evidence of associated obstruction. No mucosal thickening. No pneumatosis. No mesenteric or portal venous gas.. 08:20 Transition of care: After a detail discussion of the patient's case, care is sp4 transferred to Caden Lazar MD. 08:20 ED course: General surgeon on-call advised that patient should be sent to the [address] secondary to his recent colostomy reversal on February 2022. At this time patient was signed out to Dr. Lazar who is next ER provider conductor orchestra. He will continue to dispo patient. NG tube was placed.. 11/27 03:43 Order name: CBC with Diff; Complete Time: 06:26 sp4 11/27 03:43 Order name: CMP; Complete Time: 06:26 sp4 11/27 03:43 Order name: Lipase; Complete Time: 06:26 sp4 11/27 03:43 Order name: Urinalysis w/ reflexes; Complete Time: 06:26 sp4 11/27 05:39 Order name: Lactate w/ 2H reflex if indic.; Complete Time: 06:26 4 11/27 03:43 Order name: CT Abd/Pelvis - IV Contrast Only 4 11/27 08:20 Order name: Abdomen 1 View XRAY; Complete Time: 11:10 4 11/27 03:43 Order name: IV Saline Lock; Complete Time: 03:45 sp4 11/27 03:43 Order name: Labs collected and sent; Complete Time: 03:45 4 11/27 06:41 Order name: NG Tube; Complete Time: 12:48 sp4 Administered Medications: 04:04 Drug: NS 0.9% IV 1000 ml Route: IV; Rate: 125 ml/hr; Site: right antecubital; jb4 12:49 Follow up: IV Status: Infusion continued upon transfer db 04:05 Drug: Ondansetron IVP 4 mg Route: IVP; Site: right antecubital; jb4 12:49 Follow up: Response: No adverse reaction db 04:05 Drug: morphine IVP or IV 4 mg Route: IVP; Infused Over: 4 mins; Site: right antecubital;jb4 12:50 Follow up: Response: No adverse reaction db 04:06 Drug: Famotidine IVP 20 mg Route: IVP; Site: right antecubital; jb4 12:49 Follow up: Response: No adverse reaction db 06:56 Drug: Ondansetron IVP 4 mg Route: IVP; Site: right antecubital; ll3 12:49 Follow up: Response: No adverse reaction db 06:57 Drug: morphine IVP or IV 4 mg Route: IVP; Infused Over: 4 mins; Site: right antecubital;ll3 12:49 Follow up: Response: No adverse reaction db 08:04 CANCELLED (Duplicate Order): Tetanus Toxoid,Adsorbed IM 0.5 ml IM once; Provide Vaccine bridget Information Statement (VIS). 12:07 Drug: Piperacillin-Tazobactam IVPB 3.375 grams Route: IVPB; Infused Over: 60 mins; db Site: right antecubital; 12:49 Follow up: IV Status: Infusion continued upon transfer db 12:09 Drug: NS 0.9% IV 1000 ml Route: IV; Rate: 1 bolus; Site: right antecubital; db 12:48 Follow up: Response: No adverse reaction; IV Status: Infusion continued upon transfer db Disposition Summary: 11/27/22 06:46 Transfer Ordered Transfer Location: [facility] sp4 Reason: Higher level of care sp4 Condition: Serious sp4 Problem: new sp4 Symptoms: are unchanged sp4 Accepting Physician: [facility] (11/27/22 12:52) db Diagnosis - Acute small bowel obstruction. Mesenteric edema. sp4 - Abdominal pain, Generalized bridget Forms: - Medication Reconciliation Form sp4 - SBAR form sp4 Signatures: Dispatcher [employer] EDCaden Parson MD MD cha Bryson, James, RN RN jb4 Aggie Olivo RN RN ll3 Katie Escalera RN RN db Ana Paula Anders RN RN pf1 Morris Rice MD MD sp4 Corrections: (The following items were deleted from the chart) 08:04 08:03 Tetanus Toxoid,Adsorbed IM 0.5 ml IM once; Provide Vaccine Information Statement bridget (VIS). ordered. [facility] 08:19 08:04 Chest Abdomen Pelvis W Con+CT.RAD.BRZ ordered. EDPR EDMS 11:12 06:46 [facility] sp4 [facility] 12:52 11:12 [facility] MD gill db
--- NOTE | 2022-11-27 09:03 | RAD REPORT ---
EXAM DESCRIPTION: RAD - Abdomen Single View - 11/27/2022 8:48 am CLINICAL HISTORY: Device placement nasogastric tube placement FINDINGS: The tip of a nasogastric tube lies within the lateral aspect of gastric fundus
[2022-11-27] MEDS ORDERED: PIPERACIL/TAZO 3.375 GM VIAL IV ONE (11:39)
[2022-11-27] MEDS ORDERED: NA CHLORIDE 0.9% 100 ML ONE (11:40)
[2022-11-27 13:10] VITALS: TEMP 97.7
[2022-11-27 13:17] VITALS: BP 151/71; O2SAT 93
--- NOTE | 2022-11-27 22:02 | RAD REPORT ---
EXAM DESCRIPTION: CT - Abdomen Pelvis W Contrast - 11/27/2022 6:24 am CLINICAL HISTORY: The patient is 77 years old and is Male; ABD PAIN AND DISTENTION [facility] MAIN TECHNIQUE: Axial computed tomography images of the abdomen and pelvis with intravenous contrast. S agittal and coronal reformatted images were created and reviewed. This CT exam was performed using one or more of the following dose reduction techniques: automated exposure control, adjustment of t he mA and/or kV according to patient size, and/or use of iterative reconstruction technique. COMPARISON: 07/14/2022 CT abdomen pelvis with contrast FINDINGS: LUNG BASES: Unremarkable. No mass. No consolidation. MEDIASTINUM: Ectasia suprarenal abdominal aorta (3.1 cm) at the diaphragmatic hiatus with moderate calcified and noncalcified plaque. ABDOMEN: LIVER: Single tiny too small to characterize low-attenuation foci within the right hepatic lobe. No dedicated imaging follow-up recommended.. GALLBLADDER AND BILE DUCTS: Unremarkable. No calcified stones. No ductal dilation. PANCREAS: 0.8 cm cystic focus along the inferior pancreatic body (axial image 30). No ductal dilation. SPLEEN: Tiny focus of intense enhancement within the inferior aspect of the spleen. Nonspecific but statistically favoring a hemangioma or other benign vascular anomaly. No dedicated imaging follow-up recommended. ADRENALS: Unremarkable. No mass. KIDNEYS AND URETERS: Simple left renal cyst. No dedicated imaging follow-up recommended. No hydronephrosis. STOMACH AND BOWEL: Moderate fluid distention of the stomach. Pathologic dilatation of the mid to distal small bowel with transition point demonstrated at a right abdominal small bowel anastomosis site (axial image 50), with collapse of the terminal ileum distal t o the anastomosis. Associated mesenteric edema and trace layering free fluid noted along the right gr eater than left paracolic gutters and layering within the pelvic cul-de-sac, suggesting early vascula r/venous compromise. Rectosigmoid anastomosis again demonstrated without evidence of associated obstruction or anastomotic failure. No mucosal thickening. No pneumatosis. No mesenteric or portal venous gas. PELVIS: APPENDIX: No findings to suggest acute appendicitis. BLADDER: Unremarkable. No mass. REPRODUCTIVE: Unremarkable as visualized. ABDOMEN and PELVIS: INTRAPERITONEAL SPACE: No pneumoperitoneum. No suspicious fluid collection to suggest abscess formation. BONES/JOINTS: Multilevel spondylosis with no acute osseous abnormality. No dislocation. SOFT TISSUES: Tiny fat-containing umbilical hernia. VASCULATURE: Densely calcified atherosclerosis of the abdominal aorta and bilateral iliofemoral vas culature without aneurysmal dilatation. LYMPH NODES: Unremarkable. No enlarged lymph nodes. IMPRESSION: 1. Distal small bowel obstruction with transition point demonstrated at a right abdomi nal small bowel anastomosis site (axial image 50). Associated mesenteric edema and trace free fluid, suggesting early vascular/venous compromise. No overt evidence of bowel ischemia at this time. Dr. Zurita discussed these critical findings with Krystal via telephone at approximately 06:15 hours EST on 11/27/2022. 2. Rectosigmoid anastomosis appears patent, without evidence of anastomotic failure. 3. Suprarenal abdominal aortic aneurysm (3.1 cm) at the diaphragmatic hiatus with moderate calcifie d and noncalcified plaque. Recommend abdomen/pelvis CT or MR imaging follow-up in 2 years. 4. 0.8 cm cystic focus along the inferior pancreatic body (axial image 30). Recommend a contrast -enhanced, pancreas-protocol abdominal CT or MR in 2 years. 5. Additional nonacute findings as above. Electronically signed by: Haris Zurita MD 11/27/2022 5:22 AM CDT Due to temporary technical issues with the PACS/Fluency reporting system, reports are being signed by the in house radiologists without review as a courtesy to insure prompt reporting. The interpreting radiologist is fully responsible for the content of the report.
== END 2022-11-27 12:52 ==
LOC: ER 03:09
DX: K56.699 Other intestinal obstruction unspecified as to partial versus complete obstruction (principal); K66.8 Other specified disorders of peritoneum; Z85.038 Personal history of other malignant neoplasm of large intestine; Z85.46 Personal history of malignant neoplasm of prostate
CPT/HCPCS: 96365; 96361; 85025; 81001; 36415; 83605; 83690; 80053; 74177; 74018; 96375; 99285; Q9967; J2543; J2405 ×2; J7030 ×2

== ENCOUNTER 2022-11-30 15:44 | Emergency (ER) | payer MEDICARE ==
--- OUTSIDE RECORDS SUMMARY | 2022-11-30 15:52 | XMS REPORT | Continuity of Care Document ---
:1945 Author Organization [facility] t Address [address] [place] [address] Care Team Providers Name Role Phone Juan Antonio Butler Attending Clinician Unavailable David Gray Attending Clinician Marina_Adolfo Attending Clinician Unavailable Sindy Montero Attending Clinician Mayur Attending Clinician Unavailable Chhaya Montero Attending Clinician Marina_Adolfo Admitting Clinician Unavailable Mayur Admitting Clinician Unavailable Payers Payer Name Policy Type Policy Effective Date Expiration Date Sour ce Number [employer] [id number] 2021 (MEDICARE 00:00:00 REPLACEMENT HMO) [place] [id number] 2021 Common Spi rit 00:00:00 - [facility] Problems Condition Condition Condition Status Onset Resolution Last Treating Co mments Source Name Details Category Date Date Treatment Clinician Date Malignant Malignant Problem 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 urinary Medical tract Center symptoms, symptom details unspecifie d [id number] Type 2 Problem Common diabetes Spirit mellitus - [facility] with [facility] long-term current use of insulin Tobacco Nicotine Problem Common user dependence Spirit , - [facility] cigarettes [facility] uncomplica [facility] [id number] Mixed Problem Common hyperlipid Spirit emia - [facility] [id number] Malignant Problem Com mon neoplasm Spirit of colon, - [facility]I unspecifie [facility] d part 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 Social History Social Habit Start Date Stop Date Quantity Comments Source History of Tobacco Current Smoker Co mmon Spirit - [facility] Use [facility] Sex Assigned At Com mon Spirit - [facility] Smoking Status Start Date Stop Date Source Current Smoker 2022-09-30 00:00:00 Common Spiri t - [facility] Medications Ordered Filled Start Stop Current Ordering Indication Dosage Frequency Signature Comments Components Source Medication Medication Date Date Medication? Clinician (SIG) Name Name Losartan Losartan No 1{table QD Losartan Potassium-H [...] HCl 0.2 MG t} HCl 0.2 MG Tamsulosin Tamsulosin 2020- No 1{capsu QD Tamsulosin HCl 0.4 MG HCl 0.4 MG 06-02 le} HCl 0.4 MG 00:00 :00 Immunizations Ordered Immunization Filled Immunization Date Status Commen ts Source Name Name FluAD FluAD 2021-03-19 Completed [facility] 10:32:00 - [facility] FluAD FluAD 2021-03-19 Completed [facility] 10:32:00 - [facility] FluAD FluAD 2021-03-19 Completed [facility] 10:32:00 - [facility] FluAD FluAD 2021-03-19 Completed [facility] 10:32:00 - [facility] FluAD FluAD 2021-03-19 Completed [facility] 10:32:00 - [facility] FluAD FluAD 2021-03-19 Completed [facility] 10:32:00 - [facility] FluAD FluAD 2021-03-19 Completed [facility] 10:32:00 - [facility] FluAD FluAD 2021-03-19 Completed [facility] 10:32:00 - [facility] FluAD FluAD 2021-03-19 Completed [facility] 10:32:00 - [facility] FluAD FluAD 2021-03-19 Completed [facility] 10:32:00 - [facility] Vital Signs Vital Name Observation Time Observation Value Comments Source height 2022-03-31 10:20:00 70 [in_i] Common [facility] weight 2022-03-31 10:20:00 183 [lb_av] [facility] temperature 2022-03-31 10:20:00 97.7 [degF] [facility] bmi 2022-03-31 10:20:00 26.25 kg/m2 [facility] oximetry 2022-03-31 10:20:00 99 % [facility] respiratory rate 2022-03-31 10:20:00 18 /min Comm on [facility] blood pressure 2022-03-31 10:20:00 138 mm[Hg] Common [facility] - systolic [facility] blood pressure 2022-03-31 10:20:00 70 mm[Hg] Common [facility] - diastolic [facility] height 2021-07-13 09:20:00 70 [in_i] [facility] weight 2021-07-13 09:20:00 191.6 [lb_av] [facility] temperature 2021-07-13 09:20:00 97.9 [degF] [facility] bmi 2021-07-13 09:20:00 27.49 kg/m2 [facility] oximetry 2021-07-13 09:20:00 93 % [facility] respiratory rate 2021-07-13 09:20:00 16 /min Comm on [facility] blood pressure 2021-07-13 09:20:00 135 mm[Hg] Common [facility] - systolic [facility] blood pressure 2021-07-13 09:20:00 71 mm[Hg] Common [facility] - diastolic [facility] height 2021-06-16 08:40:00 70 [in_i] Common [facility] weight 2021-06-16 08:40:00 193.2 [lb_av] [facility] temperature 2021-06-16 08:40:00 97.7 [degF] Common [facility] bmi 2021-06-16 08:40:00 27.72 kg/m2 Common [facility] oximetry 2021-06-16 08:40:00 96 % [facility] respiratory rate 2021-06-16 08:40:00 16 /min Comm on [facility] blood pressure 2021-06-16 08:40:00 128 mm[Hg] Common [facility] - systolic [facility] blood pressure 2021-06-16 08:40:00 65 mm[Hg] Common [facility] - diastolic [facility] height 2021-03-04 11:00:00 70 [in_i] Common [facility] weight 2021-03-04 11:00:00 186.6 [lb_av] [facility] temperature 2021-03-04 11:00:00 97.2 [degF] [facility] bmi 2021-03-04 11:00:00 26.77 kg/m2 [facility] oximetry 2021-03-04 11:00:00 96 % [facility] respiratory rate 2021-03-04 11:00:00 17 /min Comm on [facility] blood pressure 2021-03-04 11:00:00 137 mm[Hg] Common [facility] - systolic [facility] blood pressure 2021-03-04 11:00:00 72 mm[Hg] [facility] Procedures This patient has no known procedures. Encounters Start End Encounter Admission Attending Care Care Encounter Source Date/Time Date/Time Type Type Clinicians Facility Department ID 2022-09-28 Outpatient Butler, STLMLC STLC [id number] Common 08:27:01 Juan Antonio [id number] [facility] 2022-03-29 Outpatient Butler, STLMLC STLC [id number] Common 10:39:02 Juan Antonio [address] [facility] 2021-09-25 Outpatient Butler, STLMLC STLC [id number] Common 10:16:02 Juan Antonio [facility] 2021-07-01 Outpatient Butler, STLMLC STLC [id number] Common 14:33:31 Juan Antonio [facility] 2021-07-01 Outpatient Butler, STLMLC STLC [id number] Common 14:04:07 Juan Antonio [address] [facility] 2022-07-12 2022-07-12 [id number] Co mmon 00:00:00 00:00:00 [facility] 2022-07-09 2022-07-09 CAV Salli 2.16.840. 2.16.840.1. CLAC [id number] [facility] 21:00:00 22:00:00 Fulminar [id number]. [id number] Medical [id number] 2022-07-09 2022-07-09 Outpatient Fulminar_S DMG DMG [id number] [facility] 00:00:00 00:00:00 0203 [facility] 2022-07-09 2022-07-09 Outpatient Fulminar_S DMG DMG [id number] [facility] 00:00:00 00:00:00 0506 Med[facility] l Group 2022-04-07 2022-04-07 CAV Vonja 2.16.840. 2.16.840.1. CLAC [id number] [facility] 14:00:00 14:30:00 Revisit: Winston [id number] Medical Gap [id number] Closure & [id number] Clinical Check-in 2022-04-06 2022-04-06 [id number] [facility] 00:00:00 00:00:00 1101 Medica l Group 2022-03-31 2022-03-31 OFFICE STLMLC STLMLC [id number] Co mmon 00:00:00 00:00:00 VISIT Spirit ESTAB PT - CHI LEVEL 4 [facility] 2022-01-27 2022-01-27 Outpatient [facility] [id number] [facility] 00:00:00 00:00:00 0824 Medica l Group 2021-12-18 2021-12-18 [facility] [id number] [facility] 06:13:00 06:13:00 0715 [facility] 2021-11-03 2021-11-03 (TEL) STLMLC STLMLC [id number] Co mmon 00:00:00 00:00:00 [facility] 2021-10-14 2021-10-14 (TEL) STLMLC STLMLC [id number] Co mmon 00:00:00 00:00:00 [facility] 2021-10-05 2021-10-05 CAV Chhaya 2.16.840. 2.16.840.1. CLAC [id number] [facility] 19:30:00 20:30:00 [place] [id number]. [id number] [facility] Medical [id number] 2021-07-13 2021-07-13 OFFICE STLMLC STLMLC [id number] Co mmon 00:00:00 00:00:00 VISIT Spirit ESTAB PT - CHI LEVEL 4 [facility] 2021-06-25 2021-06-25 (TEL) STLMLC STLMLC [id number] Co mmon 00:00:00 00:00:00 [facility] 2021-06-16 2021-06-16 PREV VISIT STLMLC STLMLC [id number] Common 00:00:00 00:00:00 EST AGE 66 Spi rit & OVER [facility] 2021-03-31 2021-03-31 (TEL) STLMLC STLMLC [id number] Co mmon 00:00:00 00:00:00 Spirit - [facility] 2021-03-19 2021-03-19 (INJ) STLMLC STLMLC [id number] Co mmon 00:00:00 00:00:00 Injection Spir it - CHI [facility] 2021-03-04 2021-03-04 OFFICE STLC STLC [id number] Co mmon 00:00:00 00:00:00 VISIT NEW Spir it PT LEVEL 3 - [facility] 2021-02-18 2021-02-18 [facility] [id number] [facility] 08:00:00 08:00:00 0915 Medica l Group 2021-01-09 2021-01-09 [facility] [id number] [facility] 11:00:00 11:00:00 0806 Medica l [...] Hep A Ab, IgM (test code = 63729-5) Negative Negative HBsAg Screen (test code = 5196-1) Negative Negative Hep B Core Ab, IgM (test code = Negative Negative 13897-0) UA/M w/rflx Culture, [id number] 00:00:00 Test Item Value Reference Range Interpretation Comments Specific Dras[place] (test code = 1.019 1.005-1.030 2965-2) pH (test code = 5803-2) 6.5 5.0-7.5 Urine-Color (test code = 5778-6) Yellow Yellow Appearance (test code = 5767-9) Clear Clear WBC Esterase (test code = 5799-2) Negative Negative Protein (test code = 73251-8) Negative Negative/Trace Glucose (test code = 2349-9) Negative Negative Ketones (test code = 2514-8) Negative Negative Occult Blood (test code = 5794-3) Negative Negative Bilirubin (test code = 5770-3) Negative Negative Urobilinogen,Semi-Qn (test code = 0.2 0.2-1.0 40910-2) Nitrite, Urine (test code = Negative Negative 5802-4) Microscopic Examination (test code See below: = 16434-8) Urinalysis Reflex (test code = UNLOINC) Prostate-Specific Ag, [id number] 00:00:00 Test Item Value Reference Range Interpretation Comments Prostate Specific Ag (test code = 1.6 0.0-4.0 2857-1) Hemoglobin [id number] 00:00:00 Test Item Value Reference Range Interpretation Comments Hemoglobin A1c (test code = 4548-4) 6.5 4.8-5.6 Comp. Metabolic Panel (14) (CMP)2021-06-16 00:00:00 Test Item Value Reference Range Interpretation Comments Glucose (test code = 2345-7) 171 65-99 BUN (test code = 3094-0) 19 8-27 Creatinine (test code = 2160-0) 0.87 0.76-1.27 eGFR If NonAfricn Am (test code = 85 >59 09701-2) eGFR If Africn Am (test code = 72587-0) 98 >59 BUN/Creatinine Ratio (test code = 03-29 3097-3) Sodium (test code = 2951-2) 140 134-144 Potassium (test code = 2823-3) 3.8 3.5-5.2 Chloride (test code = 2075-0) 101 96-106 Carbon Dioxide, Total (test code = 27 -2028-02) Calcium (test code = 47311-5) 9.1 8.6-10.2 Protein, Total (test code = 2885-2) 7.0 6.0-8.5 Albumin (test code = 1751-7) 4.1 3.7-4.7 Globulin, Total (test code = 57564-7) 2.9 1.5-4.5 A/G Ratio (test code = 1759-0) 1.4 1.2-2.2 Bilirubin, Total (test code = 1974-2) 1.0 0.0-1.2 Alkaline Phosphatase (test code = 62 44-121 6768-6) AST (SGOT) (test code = 1920-8) 15 0-40 ALT (SGPT) (test code = 1742-6) 19 0-44 Uric Acid, [id number] 00:00:00 Test Item Value Reference Range Interpretation Comments Uric Acid (test code = 3084-1) 5.0 3.8-8.4 CBC With Differential/[id number] 00:00:00 Test Item Value Reference Range Interpretation [...] Granulocytes (test code = 0 Not Estab. 86558-8) Immature Grans (Abs) (test code = 0.0 0.0-0.1 09957-5) NRBC (test code = 90210-2) Hematology Comments: (test code = 95890-4) TSH reflex to [id number] 00:00:00 Test Item Value Reference Range Interpretation Comments TSH (test code = 02953-8) 0.933 0.450-4.500
[2022-11-30 16:41] LABS: Absolute Lymphocytes (CBC) 0.9 K/uL (0.7-4.9); Hematocrit 38.9 % (39.6-49.0); Lymphocytes % 10.9 % (15.3-44.8); MCV 89.2 fL (80-100); RBC Red Blood Cell Count 4.36 M/uL (4.33-5.43)
[2022-11-30 16:49] LABS: Potassium 3.7 mEq/L (3.5-5.1); Thyroid Stimulating Hormone 0.97 uIU/mL (0.358-3.740); Troponin High Sensitivity 10.3 pg/mL (<58.9)
[2022-11-30] MEDS ORDERED: MORPHINE 2 MG/ML SYR ONE (16:57)
--- NOTE | 2022-11-30 17:10 | RAD REPORT ---
EXAM DESCRIPTION: Bjorn Single View11/30/2022 4:40 pm CLINICAL HISTORY: CHEST PAIN COMPARISON: Chest Pa And Lat (2 Views) dated 07/13/2021; Chest Pa And Lat (2 Views) dated 08/09/2018 TECHNIQUE: Portable AP view of the chest. FINDINGS: Right injection port in unchanged position. Elevation of the left hemidiaphragm with under lying atelectasis. The lungs are clear. No pneumothorax or effusion. The cardiomediastinal contours are unremarkable. IMPRESSION: No acute cardiopulmonary process. Elevation of the left hemidiaphragm.
--- NOTE | 2022-11-30 19:51 | RAD REPORT ---
EXAM DESCRIPTION: CT - Abdomen Pelvis W Contrast - 11/30/2022 7:16 pm CLINICAL HISTORY: recent obstruction, inc base COMPARISON: Abdomen Pelvis W Contrast dated 11/27/2022; Abdomen Pelvis W Contrast dated 07/14/2022 TECHNIQUE: Thin cut axial CT imaging of the abdomen and pelvis was performed following intravenous a dministration of 100 mL Isovue 300. Multiplanar reformats were generated and reviewed. All CT scans are performed using dose optimization technique as appropriate and may include automated exposure control or mA/KV adjustment according to patient size. FINDINGS: No suspicious findings in the lung bases. The liver, spleen, and pancreas show no suspicious findings. Gallbladder and biliary tree are also wi thout suspicious finding. Symmetric renal function is seen with no hydronephrosis or suspicious renal mass. 2 millimeter right renal midpole nonobstructing calculus. Dilated proximal small bowel loops, with gradual transition to nondistended small bowel in the centra l abdomen. Mild rotation noted along the mesenteric root along the segment of transition, best apprec iated on coronal images 48- 58/134. No bowel wall thickening. Mild free fluid along the upper abdomin al mesentery. Sequelae of prior distal small bowel resection again seen. Surgical anastomosis along t he distal colon is also noted. No free air, free fluid or inflammatory stranding. No hernia, mass or bulky lymphadenopathy. The urinary bladder is without significant finding. No suspicious bony findings. IMPRESSION: Proximal small bowel distention, suggesting ileus. Mild rotation noted along the mesente jaelyn root of the bowel in the central abdomen, along the segment of transition, however given the grad ual transition, an internal hernia is considered less likely. Mild free fluid along the upper aspect of the mesenteric.
--- NOTE | 2022-11-30 20:05 | EDPHYS ---
Physician Documentation [facility] Name: Jonnie Haney Age: 77 yrs Sex: Male : 1945 Arrival Date: 11/30/2022 Time: 15:44 Bed 2 Private MD: Luke [facility] ED Physician Yonny Alfred HPI: 11/30 16:14 This 77 yrs old Male presents to ER via Ambulatory with complaints of bs3 Abdominal Pain. 16:14 77-year-old male history of colon cancer status post colostomy, reversal, recently seen bs3 here for abdominal pain found to have a bowel obstruction transferred to outside hospital where it was managed nonoperatively at some point in time he had tachycardia of the and was seen by cardiology who did not give him a diagnosis but he had an echo and he has not been given any medication he comes in for recurrent abdominal pain that started when he was discharged but has been progressively getting worse since yesterday denies fevers chills chest pain shortness of breath or anything else bothering him. Historical: - Allergies: 15:53 No Known Allergies; ss - Home Meds: 15:53 metformin 500 mg Oral Tablet, ER Gastric Retention 24 hr every evening [Active]; ss losartan 100 mg oral tablet daily [Active]; clonidine HCl 0.2 mg Oral tablet 2 times per day [Active]; amlodipine 5 mg tablet daily [Active]; - PMHx: 15:53 Hypertensive disorder; Diabetes mellitus; ss - Immunization history:: Adult Immunizations up to date. - Social history:: Smoking status: Patient denies any tobacco usage or history of. ROS: 16:14 Constitutional: Negative for fever, chills bs3 16:14 All other systems are negative. Exam: 16:14 Constitutional: This is a well developed, well nourished patient who is awake, alert, bs3 and in no acute distress. Head/Face: Normocephalic, atraumatic. Eyes: Pupils equal round and reactive to light, extra-ocular motions intact. Lids and lashes normal. ENT: mmm, no posterior phyarngeal erythema Chest/axilla: Normal chest wall appearance and motion. Nontender with no deformity. No lesions are appreciated. Cardiovascular: Regular rate and rhythm with a normal S1 and S2. symmetric pulses in upper extremities Respiratory: Lungs have equal breath sounds bilaterally, clear to auscultation, no respiratory distress Abdomen/GI: Soft, non-tender, no rebound or guarding Skin: Warm, dry with normal turgor. Normal color with no rashes, no lesions, and no evidence of cellulitis. MS/ Extremity: Pulses equal, no cyanosis. Neurovascular intact. Full, normal range of motion. Neuro: Awake and alert, GCS 15, oriented to person, place, time, and situation. Cranial nerves II-XII grossly intact. Motor strength 5/5 in all extremities. Sensory grossly intact. Psych: Awake, alert, with orientation to person, place and time. Behavior, mood, and affect are within normal limits. 16:14 sinus tachycardia 97, rbbb, lafb, qtc 480 Vital Signs: 15:51 BP 107 / 63; Pulse 156; Resp 16; Temp 97.2; Pulse Ox 94% ; ss 16:14 BP 132 / 80; Pulse 96; Resp 18; Pulse Ox 95% on R/A; ph 16:44 BP 147 / 91; Pulse 93; Resp 18; Pulse Ox 99% on R/A; ph 17:41 BP 120 / 68; Pulse 84; Resp 18; Pulse Ox 94% on R/A; ph 18:54 BP 143 / 75; Pulse 91; Resp 18; Pulse Ox 93% on R/A; ph 19:30 BP 154 / 85; Pulse 87; Resp 16; Pulse Ox 94% on R/A; ha1 20:10 BP 150 / 81; Pulse 85; Resp 18 S; Pulse Ox 94% on R/A; ha1 MDM: 16:04 Patient medically screened. bs3 16:14 Data reviewed: vital signs, nurses notes. ED course: pt was initially seen in triage, bs3 very briefly where he was tachycardic into 150s, he was brought back to the room and placed on monitor/ecg was performed, but his hr was 94, will eval for recurrent obstruction, eval for obstruction, do serial exsams and reassess. 20:03 ED course: CT consistent with an ileus no acute small bowel obstruction patient was bs3 reassessed and feeling better however given his recent admission I discussed the [facility] I also give the patient the option of staying for observation or go home patient wants to try to go home he was given very strict return precautions for increased pain or any other concerning symptoms he is passing gas. 11/30 16:11 Order name: Basic Metabolic Panel; Complete Time: 17:23 ss 11/30 16:11 Order name: CBC with Diff; Complete Time: 17:23 ss 11/30 16:11 Order name: Troponin HS; Complete Time: 17:23 ss 11/30 16:11 Order name: TSH; Complete Time: 17:23 bs3 11/30 16:11 Order name: Lactate w/ 2H reflex if indic.; Complete Time: 17:23 bs3 11/30 16:11 Order name: XRAY Chest (1 view); Complete Time: 17:23 ss 11/30 16:11 Order name: CT Abd/Pelvis - PO and IV Contrast; Complete Time: 19:57 bs3 11/30 16:11 Order name: EKG; Complete Time: 16:12 ss 11/30 16:11 Order name: Cardiac monitoring; Complete Time: 16:15 11/30 16:11 Order name: EKG - Nurse/Tech; Complete Time: 16:15 11/30 16:11 Order name: IV Saline Lock; Complete Time: 16:15 ss 11/30 16:11 Order name: Labs collected and sent; Complete Time: 16:15 11/30 16:11 Order name: O2 Per Protocol; Complete Time: 16:15 11/30 16:11 Order name: O2 Sat Monitoring; Complete Time: 16:15 ss Administered Medications: 17:04 Drug: morphine IVP or IV 2 mg Route: IVP; Infused Over: 4 mins; Site: left upper arm; ph 18:54 Follow up: Response: No adverse reaction; Pain is decreased ph Disposition Summary: 11/30/22 20:04 Discharge Ordered Location: Home bs3 Problem: an acute exacerbation bs3 Symptoms: have improved bs3 Condition: Fair bs3 Diagnosis - Ileus, unspecified bs3 Followup: bs3 - With: Juan Antonio Butler DO - When: 24 Hours - Reason: Re-evaluation by your physician Discharge Instructions: - Discharge Summary Sheet bs3 - Ileus bs3 Forms: - Medication Reconciliation Form bs3 - Thank You Letter bs3 - Antibiotic Education bs3 - Prescription Opioid Use bs3 - [employer]_Portal_[email or web address] bs3 Signatures: Dispatcher [employer] EDMS Means, Sydney, RN RN ss Leann Stringer RN RN Yonny Porras MD MD bs3
--- NOTE | 2022-11-30 20:05 | ER ---
Nurse's Notes [facility] Name: Jonnie Haney Age: 77 yrs Sex: Male : 1945 Arrival Date: 11/30/2022 Time: 15:44 Bed 2 Private MD: Juan Antonio Butler Diagnosis: Ileus, unspecified Presentation: 11/30 15:51 Chief complaint: [facility] states[facility], NOW WITH DIFF ABD ss PAIN AND SWELLING. Coronavirus screen: At this time, the client does not indicate any symptoms associated with coronavirus-19. Ebola Screen: No symptoms or risks identified at this time. Initial Sepsis Screen: Does the patient meet any 2 criteria? HR > 90 bpm. No. Patient's initial sepsis screen is negative. Does the patient have a suspected source of infection? No. Patient's initial sepsis screen is negative. Risk Assessment: Do you want to hurt yourself or someone else? Patient reports no desire to harm self or others. Onset of symptoms was November 30, 2022. 15:51 Method Of Arrival: Ambulatory ss 15:51 Acuity: LOCO 2 ss Triage Assessment: 15:53 General: Appears distressed, uncomfortable, Behavior is calm, cooperative, appropriate ss for age. Pain: Complains of pain in abdomen. EENT: No deficits noted. Neuro: No deficits noted. Cardiovascular: Rhythm is sinus tachycardia. Respiratory: No deficits noted. GI: Reports DIFFUSE ABDOMINAL PAIN. : No signs and/or symptoms were reported regarding the genitourinary system. Derm: No deficits noted. Musculoskeletal: No deficits noted. Historical: - Allergies: 15:53 No Known Allergies; ss - Home Meds: 15:53 metformin 500 mg Oral Tablet, ER Gastric Retention 24 hr every evening [Active]; ss losartan 100 mg oral tablet daily [Active]; clonidine HCl 0.2 mg Oral tablet 2 times per day [Active]; amlodipine 5 mg tablet daily [Active]; - PMHx: 15:53 Hypertensive disorder; Diabetes mellitus; ss - Immunization history:: Adult Immunizations up to date. - Social history:: Smoking status: Patient denies any tobacco usage or history of. Screenin:13 [facility] ED Fall Risk Assessment (Adult) History of falling in the last 3 months, ph including since admission No falls in past 3 months (0 pts) Confusion or Disorientation Yes (5 pts) Intoxicated or Sedated No (0 pts) Impaired Gait Yes (1 pt) Mobility Assist Device Used No (0 pt) Altered Elimination No (0 pt) Score/Fall Risk Level 0 - 2 = Low Risk Oriented to surroundings, Maintained a safe environment, Provided non-skid footwear, Hourly rounding (assess needs \T\ fall precautionary measures) done. Abuse screen: Denies threats or abuse. Denies injuries from another. Nutritional screening: No deficits noted. Tuberculosis screening: No symptoms or risk factors identified. Assessment: 16:14 General: Appears in no apparent distress. comfortable, Behavior is calm, cooperative, ph appropriate for age. Pain: Complains of pain in abdomen. Neuro: Level of Consciousness is awake, alert, obeys commands, Oriented to person, place, time, situation. Cardiovascular: Capillary refill < 3 seconds in bilateral fingers Patient's skin is warm and dry. Respiratory: Airway is patent Respiratory effort is even, unlabored, Respiratory pattern is regular, symmetrical. GI: Abdomen is round Reports lower abdominal pain, upper abdominal pain, Patient currently denies nausea, vomiting. Derm: Skin is pink, warm \T\ dry. 16:44 Reassessment: Pt completed PO contrast, CT notified. ph 18:53 Reassessment: Patient appears in no apparent distress at this time. Patient and/or ph family updated on plan of care and expected duration. Pain level reassessed. Patient is alert, oriented x 3, equal unlabored respirations, skin warm/dry/pink. Pt resting comfortably, states that pain has improved, awaiting CT. 19:10 General: Appears comfortable, Behavior is calm, cooperative. Pain: Complains of pain in ha1 abdomen Unable to use pain scale. FLACC scale score is 1 out of 10. Neuro: Level of Consciousness is awake, alert, obeys commands, Oriented to person, place, time, situation. Respiratory: Airway is patent Respiratory effort is even, unlabored, Respiratory pattern is regular, symmetrical. 19:10 Reassessment: Going to CT. ha1 19:10 GI: Bowel sounds present X 4 quads. Abd is soft and non tender. ha1 20:38 Reassessment: Patient and/or family updated on plan of care and expected duration. Pain ha1 level reassessed. Patient is alert, oriented x 3, equal unlabored respirations, skin warm/dry/pink. pain 2/10. Vital Signs: 15:51 BP 107 / 63; Pulse 156; Resp 16; Temp 97.2; Pulse Ox 94% ; ss 16:14 BP 132 / 80; Pulse 96; Resp 18; Pulse Ox 95% on R/A; ph 16:44 BP 147 / 91; Pulse 93; Resp 18; Pulse Ox 99% on R/A; ph 17:41 BP 120 / 68; Pulse 84; Resp 18; Pulse Ox 94% on R/A; ph 18:54 BP 143 / 75; Pulse 91; Resp 18; Pulse Ox 93% on R/A; ph 19:30 BP 154 / 85; Pulse 87; Resp 16; Pulse Ox 94% on R/A; ha1 20:10 BP 150 / 81; Pulse 85; Resp 18 S; Pulse Ox 94% on R/A; ha1 Vitals: 18:54 Cardiac Rhythm Assessment Sinus rhythm. ph ED Course: 15:47 Patient arrived in ED. am2 15:48 Juan Antonio Butler DO is Private Physician. am2 15:52 Triage completed. ss 15:53 Arm band placed on. ss 16:04 Yonny Alfred MD is Attending Physician. bs3 16:04 Leann Stringer, JIMMY is Primary Nurse. ph 16:13 Patient has correct armband on for positive identification. Bed in low position. Call ph light in reach. Side rails up X2. Client placed on continuous cardiac and pulse oximetry monitoring. NIBP monitoring applied. 16:13 Initial lab(s) drawn, by ED staff. Inserted saline lock: 20 gauge in left antecubital ph area, using aseptic technique. Blood collected. 16:41 XRAY Chest (1 view) In Process Unspecified. EDMS 19:18 CT Abd/Pelvis - PO and IV Contrast In Process Unspecified. EDMS 20:04 Juan Antonio Butler DO is Referral Physician. bs3 20:37 No provider procedures requiring assistance completed. IV discontinued, intact, ha1 bleeding controlled, No redness/swelling at site. Pressure dressing applied. Administered Medications: 17:04 Drug: morphine IVP or IV 2 mg Route: IVP; Infused Over: 4 mins; Site: left upper arm; ph 18:54 Follow up: Response: No adverse reaction; Pain is decreased ph Medication: 16:14 VIS not applicable for this client. ph Outcome: 20:04 Discharge ordered by . bs3 20:38 Discharged to home via wheelchair, with family. ha1 20:38 Condition: stable 20:38 Discharge instructions given to patient, family, Instructed on discharge instructions, follow up and referral plans. Demonstrated understanding of instructions, follow-up care. 20:39 Patient left the ED. ha1 Signatures: Dispatcher [employer] EDSydney Gray RN RN Leann Stringer RN RN Grisel Peralta Shira Gasca RN RN ha1 Yonny Alfred MD MD bs3
--- NOTE | 2022-11-30 20:33 | EKG ---
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
[2022-11-30 20:46] VITALS: TEMP 97.2
[2022-11-30 20:51] VITALS: O2SAT 94
[2022-11-30 20:53] VITALS: BP 150/81
--- NOTE | 2022-12-01 18:10 | EKG ---
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
== END 2022-11-30 20:39 | disposition home or self-care (01) ==
LOC: ER 15:44
DX: K56.7 Ileus, unspecified (principal); E11.9 Type 2 diabetes mellitus without complications
CPT/HCPCS: 93005; 85025; 80048; 36415; 83605; 84443; 84484; 74177; 71045; Q9967; J2270

== ENCOUNTER 2022-12-03 10:41 | Inpatient (IN) | payer MEDICARE ==
--- OUTSIDE RECORDS SUMMARY | 2022-12-03 11:33 | XMS REPORT | Continuity of Care Document ---
:1945 Author Organization [facility] t Address [address] [place] [address] Care Team Providers Name Role Phone Juan Antonio Butler Attending Clinician Unavailable David Gray Attending Clinician Marina_Adolfo Attending Clinician Unavailable Sindy Montero Attending Clinician Mayur Attending Clinician Unavailable Chhaya Montero Attending Clinician Marina_Adolfo Admitting Clinician Unavailable Mayur Admitting Clinician Unavailable Payers Payer Name Policy Type Policy Effective Date Expiration Date Sour ce Number [employer] [id number] 2021 (MEDICARE 00:00:00 REPLACEMENT HMO) [place] [id number] 2021 Common Spi rit 00:00:00 - [facility] Problems Condition Condition Condition Status Onset Resolution Last Treating Co mments Source Name Details Category Date Date Treatment Clinician Date Malignant Malignant Problem 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 - [facility] 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 long-term current use of insulin Tobacco Nicotine Problem Common user dependence Spirit , - [facility] cigarettes 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 Social History Social Habit Start Date Stop Date Quantity Comments Source History of Tobacco Current Smoker Co mmon Spirit - [facility] Use [facility] Sex Assigned At Com mon Spirit - [facility] Smoking Status Start Date Stop Date Source Current Smoker 2022-09-30 00:00:00 Common Spiri t - [facility] Medications Ordered Filled Start Stop Current Ordering Indication Dosage Frequency Signature Comments Components Source Medication Medication Date Date Medication? Clinician (SIG) Name Name cloNIDine cloNIDine No 1{table BID cloNIDine HCl [...] 1{table QD Ondansetro 4 MG 4 MG t__ n 4 MG e_tongu e_and_a llow_to _dissol [...] 1000 MG t} 1000 MG Tamsulosin Tamsulosin 2020- No 1{capsu QD Tamsulosin HCl 0.4 MG HCl 0.4 MG 06-02 le} HCl 0.4 MG 00:00 :00 Immunizations Ordered Immunization Filled Immunization Date Status Commen ts Source Name Name FluAD FluAD 2021-03-19 Completed [facility] 10:32:00 - [facility] FluAD FluAD 2021-03-19 Completed [facility] 10:32:00 - [facility] FluAD FluAD 2021-03-19 Completed [facility] 10:32:00 - [facility] FluAD FluAD 2021-03-19 Completed [facility] 10:32:00 - [facility] FluAD FluAD 2021-03-19 Completed [facility] 10:32:00 - [facility] FluAD FluAD 2021-03-19 Completed [facility] 10:32:00 - [facility] FluAD FluAD 2021-03-19 Completed [facility] 10:32:00 - [facility] FluAD FluAD 2021-03-19 Completed [facility] 10:32:00 - [facility] FluAD FluAD 2021-03-19 Completed [facility] 10:32:00 - [facility] FluAD FluAD 2021-03-19 Completed [facility] 10:32:00 - [facility] Vital Signs Vital Name Observation Time Observation Value Comments Source height 2022-03-31 10:20:00 70 [in_i] Common [facility] weight 2022-03-31 10:20:00 183 [lb_av] [facility] temperature 2022-03-31 10:20:00 97.7 [degF] [facility] bmi 2022-03-31 10:20:00 26.25 kg/m2 [facility] oximetry 2022-03-31 10:20:00 99 % [facility] respiratory rate 2022-03-31 10:20:00 18 /min Comm on [facility] blood pressure 2022-03-31 10:20:00 138 mm[Hg] Common [facility] - systolic [facility] blood pressure 2022-03-31 10:20:00 70 mm[Hg] Common [facility] - diastolic [facility] height 2021-07-13 09:20:00 70 [in_i] [facility] weight 2021-07-13 09:20:00 191.6 [lb_av] [facility] temperature 2021-07-13 09:20:00 97.9 [degF] [facility] bmi 2021-07-13 09:20:00 27.49 kg/m2 [facility] oximetry 2021-07-13 09:20:00 93 % [facility] respiratory rate 2021-07-13 09:20:00 16 /min Comm on [facility] blood pressure 2021-07-13 09:20:00 135 mm[Hg] Common [facility] - systolic [facility] blood pressure 2021-07-13 09:20:00 71 mm[Hg] Common [facility] - diastolic [facility] height 2021-06-16 08:40:00 70 [in_i] Common S [facility] weight 2021-06-16 08:40:00 193.2 [lb_av] [facility] temperature 2021-06-16 08:40:00 97.7 [degF] Common [facility] bmi 2021-06-16 08:40:00 27.72 kg/m2 Common S [facility] oximetry 2021-06-16 08:40:00 96 % [facility] respiratory rate 2021-06-16 08:40:00 16 /min Comm on [facility] blood pressure 2021-06-16 08:40:00 128 mm[Hg] Common [facility] - systolic [facility] blood pressure 2021-06-16 08:40:00 65 mm[Hg] Common [facility] - diastolic [facility] height 2021-03-04 11:00:00 70 [in_i] Common [facility] weight 2021-03-04 11:00:00 186.6 [lb_av] [facility] temperature 2021-03-04 11:00:00 97.2 [degF] [facility] bmi 2021-03-04 11:00:00 26.77 kg/m2 [facility] S [facility] oximetry 2021-03-04 11:00:00 96 % [facility] respiratory rate 2021-03-04 11:00:00 17 /min Comm on [facility] blood pressure 2021-03-04 11:00:00 137 mm[Hg] Common [facility] - systolic [facility] blood pressure 2021-03-04 11:00:00 72 mm[Hg] [facility] diastolic [facility] Procedures This patient has no known procedures. Encounters Start End Encounter Admission Attending Care Care Encounter Source Date/Time Date/Time Type Type Clinicians Facility Department ID 2022-12-02 Outpatient Butler, STLMLC STLMLC [id number] Common 11:34:01 Juan Antonio [id number] [facility] 2022-09-28 Outpatient Butler, STLMLC STLMLC [id number] Common 08:27:01 Juan Antonio [id number] [facility] 2022-03-29 Outpatient Butler, STLMLC STLMLC [id number] Common 10:39:02 Juan Antonio [id number] [facility] 2021-09-25 Outpatient Butler, STLMLC STLMLC [id number] Common 10:16:02 Juan Antonio [facility] 2021-07-01 Outpatient Butler, STLMLC STLMLC [id number] Common 14:33:31 Juan Antonio [facility] 2021-07-01 Outpatient Butler, STLMLC STLC [id number] Common 14:04:07 Juan Antonio [id number] [facility] 2022-07-12 2022-07-12 (TEL) STLC STLC [id number] Co mmon 00:00:00 00:00:00 [facility] 2022-07-09 2022-07-09 CAV Salli [id number]. [id number]. CLAC [id number] [facility] 21:00:00 22:00:00 Fulminar [id number]. [id number] [id number] 2022-07-09 2022-07-09 Outpatient Fulminar_S DMG DMG [id number] [facility] 00:00:00 00:00:00 0203 [facility] 2022-07-09 2022-07-09 Outpatient Fulminar_S DMG DMG [id number] [facility] 00:00:00 00:00:00 0506 [facility] 2022-04-07 2022-04-07 CAV Vonja [id number]. 2.16.840.1. CLAC [id number] [facility] 14:00:00 14:30:00 Revisit: Winston Mariscal.[id number]. [id number]. R6W Medical Gap [id number] Closure & [id number] Clinical Check-in 2022-04-06 2022-04-06 [facility] [id number] [facility] 00:00:00 00:00:00 1101 [facility] 2022-03-31 2022-03-31 OFFICE STLMLC STLMLC [id number] Co mmon 00:00:00 00:00:00 VISIT [facility] PT - CHI LEVEL 4 [facility] 2022-01-27 2022-01-27 Outpatient [facility] [id number] [facility] 00:00:00 00:00:00 0824 [facility] 2021-12-18 2021-12-18 Outpatient [facility] [id number] [facility] 06:13:00 06:13:00 0715 [facility] 2021-11-03 2021-11-03 (TEL) STLMLC STLMLC [id number] Co mmon 00:00:00 00:00:00 [facility] 2021-10-14 2021-10-14 (TEL) STLMLC STLMLC [id number] Co mmon 00:00:00 00:00:00 [facility] 2021-10-05 2021-10-05 CAV Chhaya 2.16.840. 2.16.840.1. CLAC [id number] [facility] 19:30:00 20:30:00 Winston Mariscal.226484. [id number]. [facility] [id number] 2021-07-13 2021-07-13 OFFICE STLMLC STLMLC [id number] Co mmon 00:00:00 00:00:00 VISIT [facility] PT - CHI LEVEL 4 [facility] 2021-06-25 2021-06-25 (TEL) STLMLC STLMLC [id number] Co mmon 00:00:00 00:00:00 [facility] 2021-06-16 2021-06-16 PREV VISIT STLMLC STLMLC [id number] Common 00:00:00 00:00:00 EST AGE 66 Spi rit & OVER - [facility] 2021-03-31 2021-03-31 (TEL) STLMLC STLMLC [id number] Co mmon 00:00:00 00:00:00 Spirit - [facility] 2021-03-19 2021-03-19 (INJ) STLMLC STLMLC [id number] Co mmon 00:00:00 00:00:00 Injection Spir it - [facility] 2021-03-04 2021-03-04 OFFICE STLMLC STLMLC [id number] Co mmon 00:00:00 00:00:00 VISIT NEW Spir it PT LEVEL 3 - [facility] 2021-02-18 2021-02-18 [facility] [id number] [facility] 08:00:00 08:00:00 0915 [facility] 2021-01-09 2021-01-09 Outpatient [facility] [id number] [facility] 11:00:00 11:00:00 0806 Medica l [...] Hep A Ab, IgM (test code = 88139-8) Negative Negative HBsAg Screen (test code = 5196-1) Negative Negative Hep B Core Ab, IgM (test code = Negative Negative 89864-5) UA/M w/rflx Culture, [id number] 00:00:00 Test Item Value Reference Range Interpretation Comments Specific [place] (test code = 1.019 1.005-1.030 2965-2) pH (test code = 5803-2) 6.5 5.0-7.5 Urine-Color (test code = 5778-6) Yellow Yellow Appearance (test code = 5767-9) Clear Clear WBC Esterase (test code = 5799-2) Negative Negative Protein (test code = 23193-6) Negative Negative/Trace Glucose (test code = 2349-9) Negative Negative Ketones (test code = 2514-8) Negative Negative Occult Blood (test code = 5794-3) Negative Negative Bilirubin (test code = 5770-3) Negative Negative Urobilinogen,Semi-Qn (test code = 0.2 0.2-1.0 56498-0) Nitrite, Urine (test code = Negative Negative 5802-4) Microscopic Examination (test code See below: = 82075-3) Urinalysis Reflex (test code = UNLOINC) Prostate-Specific Ag, [id number] 00:00:00 Test Item Value Reference Range Interpretation Comments Prostate Specific Ag (test code = 1.6 0.0-4.0 2857-1) Hemoglobin [id number] 00:00:00 Test Item Value Reference Range Interpretation Comments Hemoglobin A1c (test code = 4548-4) 6.5 4.8-5.6 Comp. Metabolic Panel (14) (CMP)2021-06-16 00:00:00 Test Item Value Reference Range Interpretation Comments Glucose (test code = 2345-7) 171 65-99 BUN (test code = 3094-0) 19 8-27 Creatinine (test code = 2160-0) 0.87 0.76-1.27 eGFR If NonAfricn Am (test code = 85 >59 03775-3) eGFR If Africn Am (test code = 73575-3) 98 >59 BUN/Creatinine Ratio (test code = 27 03- 3097-3) Sodium (test code = 2951-2) 140 134-144 Potassium (test code = 2823-3) 3.8 3.5-5.2 Chloride (test code = 2075-0) 101 96-106 Carbon Dioxide, Total (test code = 27 20-29 2028-02) Calcium (test code = 44087-9) 9.1 8.6-10.2 Protein, Total (test code = 2885-2) 7.0 6.0-8.5 Albumin (test code = 1751-7) 4.1 3.7-4.7 Globulin, Total (test code = 83058-9) 2.9 1.5-4.5 A/G Ratio (test code = 1759-0) 1.4 1.2-2.2 Bilirubin, Total (test code = 1974-2) 1.0 0.0-1.2 Alkaline Phosphatase (test code = 62 44-121 6768-6) AST (SGOT) (test code = 1920-8) 15 0-40 ALT (SGPT) (test code = 1742-6) 19 0-44 Uric Acid, [id number] 00:00:00 Test Item Value Reference Range Interpretation Comments Uric Acid (test code = 3084-1) 5.0 3.8-8.4 CBC With Differential/[id number] 00:00:00 Test Item Value Reference Range Interpretation [...] Granulocytes (test code = 0 Not Estab. 36668-9) Immature Grans (Abs) (test code = 0.0 0.0-0.1 60943-7) NRBC (test code = 64192-5) Hematology Comments: (test code = 67235-1) TSH reflex to [id number] 00:00:00 Test Item Value Reference Range Interpretation Comments TSH (test code = 14774-1) 0.933 0.450-4.500
[2022-12-03] MEDS ORDERED: NA CHLORIDE 0.9% 1,000 ML ONE ×3 (11:38→15:44)
[2022-12-03 11:41] LABS: Hematocrit 40.4 % (39.6-49.0); Lymphocytes % 13.9 % (15.3-44.8); MCV 89.1 fL (80-100); MPV 7.6 fL (7.6-11.3); RBC Red Blood Cell Count 4.53 M/uL (4.33-5.43)
--- NOTE | 2022-12-03 11:46 | RAD REPORT ---
EXAM DESCRIPTION: RADChest Single View12/03/2022 11:34 am CLINICAL HISTORY: COUGH COMPARISON: Chest Single View dated 11/30/2022; Chest Pa And Lat (2 Views) dated 07/13/2021; Chest Pa A nd Lat (2 Views) dated 08/09/2018 TECHNIQUE: Portable AP view of the chest. FINDINGS: Elevated left hemidiaphragm and left basilar atelectasis, stable. The lungs are otherwise clear. Right medication port in unchanged position. No pneumothorax or effusion. The cardiomediastin al contours are unremarkable. IMPRESSION: No acute cardiopulmonary process.
[2022-12-03 11:57] LABS: Protime INR 0.88
[2022-12-03 11:58] LABS: SARS-CoV-2 Antigen Rapid Res Negative (Negative)
[2022-12-03 12:11] LABS: Albumin 3.5 g/dL (3.4-5.0); Bilirubin Direct 0.4 mg/dL (0-0.2); Bilirubin Indirect, Calculated 0.8 mg/dL (0.2-0.8); Bilirubin Total 1.2 mg/dL (0.2-1.0); Magnesium 2.3 mg/dL (1.6-2.4); Potassium 3.6 mEq/L (3.5-5.1); Protein, Total 7.5 g/dL (6.4-8.2); Troponin High Sensitivity 12.5 pg/mL (<58.9)
--- NOTE | 2022-12-03 12:19 | RAD REPORT ---
EXAM DESCRIPTION: CT - Abdomen Pelvis Wo Contrast - 12/03/2022 11:43 am CLINICAL HISTORY: ABD PAIN COMPARISON: Abdomen Pelvis W Contrast dated 11/30/2022; Abdomen Pelvis W Contrast dated 11/27/2022 ; Abdomen Pelvis W Contrast dated 07/14/2022 TECHNIQUE: Thin cut axial CT imaging of the abdomen and pelvis was performed without IV contrast. Mu ltiplanar reformats were generated and reviewed. All CT scans are performed using dose optimization technique as appropriate and may include automated exposure control or mA/KV adjustment according to patient size. FINDINGS: No suspicious findings in the lung bases. The liver, spleen, and pancreas show no suspicious findings. Gallbladder and biliary tree are also wi thout suspicious finding. Symmetric renal contour, without suspicious parenchymal findings within limits of noncontrast techniq ue. 2-3 millimeter calculi along the right renal calyces. No hydronephrosis. Dilated proximal small bowel loops, up to 4.4 centimeter in caliber, with air-fluid levels. Relativel y abrupt transition to nondistended small bowel in the posterior central to lower abdomen, axial imag e 58/101. Colonic diverticulosis. No free air, free fluid or inflammatory stranding. No hernia, mass or bulky lymphadenopathy. The urinary bladder is without significant finding. No suspicious bony findings. IMPRESSION: Proximal small bowel dilation with relatively abrupt transition to nondistended small [place] wel in the posterior central to lower abdomen, concerning for small bowel obstruction. Tiny right renal nonobstructing calculi. The findings were communicated to Caden Lazar on 12/03/2022 at 12:13 hours.
[2022-12-03] MEDS ORDERED: FAMOTIDINE 20 MG/2 ML VIAL IV ONE (12:47)
[2022-12-03] MEDS ORDERED: NA CHLORIDE 0.9% 100 ML ONE (12:47)
[2022-12-03] MEDS ORDERED: PIPERACIL/TAZO 3.375 GM VIAL IV ONE (12:48)
--- NOTE | 2022-12-03 13:24 | ER ---
Nurse's Notes [facility] Name: Jonnie Haney Age: 77 yrs Sex: Male : 1945 Arrival Date: 12/03/2022 Time: 10:41 Bed 17 Private MD: Juan Antonio Butler Diagnosis: Weakness;Abdominal pain, unspecified;Anorexia;Other and unspecified intestinal obstruction-DISTAL SMALL BOWEL Presentation: 12/03 10:59 Chief complaint: Patient states: Generalized weakness x 1 week. Nausea that began ss yesterday. Coronavirus screen: Client denies travel out of the [place] in the last 14 days. Ebola Screen: Patient denies exposure to infectious person. Patient denies travel to an Ebola-affected area in the 21 days before illness onset. Initial Sepsis Screen: Does the patient meet any 2 criteria? No. Patient's initial sepsis screen is negative. Does the patient have a suspected source of infection? No. Patient's initial sepsis screen is negative. Risk Assessment: Do you want to hurt yourself or someone else? Patient reports no desire to harm self or others. Onset of symptoms was November 26, 2022. 10:59 Method Of Arrival: Wheelchair ss 10:59 Acuity: LOCO 3 ss Historical: - Allergies: 11:00 No Known Allergies; ss - Home Meds: 15:51 amlodipine 5 mg tablet daily [Active]; clonidine HCl 0.2 mg Oral tablet 2 times per day eh3 [Active]; losartan 100 mg Oral tablet daily [Active]; metformin 500 mg Oral Tablet, ER Gastric Retention 24 hr every evening [Active]; - PMHx: 11:00 diabetes mellitus; Hypertensive disorder; ss - Immunization history:: Client reports receiving the 2nd dose of the Covid vaccine. - Social history:: Smoking status: Patient reports the use of cigarette tobacco products, smokes two packs cigarettes per day. - Family history:: not pertinent. Screenin:00 [facility] ED Fall Risk Assessment (Adult) Score/Fall Risk Level 3 or more points = High eh3 Risk Oriented to surroundings, Maintained a safe environment, Educated pt \T\ family on fall prevention, incl call for assistance when getting out of bed, Assessed \T\ reinforced patient's understanding of fall precautions, Provided non-skid footwear, Hourly rounding (assess needs \T\ fall precautionary measures) done, Used ambulatory aids as needed (educated on \T\ assisted with), Utilized family, sitter, or virtual grader meat as indicated. Abuse screen: Denies threats or abuse. Denies injuries from another. Nutritional screening: No deficits noted. Tuberculosis screening: No symptoms or risk factors identified. Assessment: 11:00 General: Appears in no apparent distress. uncomfortable, Behavior is calm, cooperative, eh3 appropriate for age. Pain: Denies pain. Neuro: Level of Consciousness is awake, alert, obeys commands, Oriented to person, place, time, situation. Cardiovascular: Capillary refill < 3 seconds Patient's skin is warm and dry. Respiratory: Airway is patent Respiratory effort is even, unlabored, Respiratory pattern is regular, symmetrical. GI: Abdomen is round non-distended. Derm: Skin is pink, warm \T\ dry. Musculoskeletal: Circulation, motion, and sensation intact. 12:00 Reassessment: Patient appears in no apparent distress at this time. Patient and/or eh3 family updated on plan of care and expected duration. Pain level reassessed. Patient is alert, oriented x 3, equal unlabored respirations, skin warm/dry/pink. 13:00 Reassessment: Patient appears in no apparent distress at this time. Patient and/or eh3 family updated on plan of care and expected duration. Pain level reassessed. Patient is alert, oriented x 3, equal unlabored respirations, skin warm/dry/pink. 14:00 Reassessment: Patient appears in no apparent distress at this time. Patient and/or eh3 family updated on plan of care and expected duration. Pain level reassessed. Patient is alert, oriented x 3, equal unlabored respirations, skin warm/dry/pink. 15:00 Reassessment: Patient appears in no apparent distress at this time. Patient and/or eh3 family updated on plan of care and expected duration. Pain level reassessed. Patient is alert, oriented x 3, equal unlabored respirations, skin warm/dry/pink. Vital Signs: 10:59 BP 143 / 85; Pulse 94; Resp 16; Temp 97.5(TE); Pulse Ox 96% on R/A; Weight 80.29 kg; ss Height 5 ft. 9 in. ; Pain 0/10; 11:00 BP 115 / 103; Pulse 98; Resp 20; Pulse Ox 96% on R/A; eh3 12:00 BP 166 / 82; Pulse 67; Resp 17; Pulse Ox 97% on R/A; eh3 13:00 BP 177 / 87; Pulse 87; Resp 20; Temp 98.9(O); Pulse Ox 97% on R/A; eh3 14:00 BP 171 / 85; Pulse 88; Resp 19; Pulse Ox 95% on R/A; eh3 15:00 BP 175 / 85; Pulse 83; Resp 17; Pulse Ox 95% on R/A; eh3 10:59 Body Mass Index 26.14 (80.29 kg, 175.26 cm) ss 10:59 Pain Scale: Adult ss ED Course: 10:43 Patient arrived in ED. mr 10:43 Juan Antonio Butler DO is Private Physician. mr 10:46 Caden Lazar MD is Attending Physician. bridget 11:00 Triage completed. ss 11:00 Arm band placed on right wrist. ss 11:00 Patient has correct armband on for positive identification. Placed in gown. Bed in low eh3 position. Call light in reach. Side rails up X2. Adult w/ patient. Client placed on continuous cardiac and pulse oximetry monitoring. NIBP monitoring applied. Door closed. Noise minimized. Lights dimmed. Warm blanket given. 11:03 Inserted saline lock: 20 gauge in left antecubital area, using aseptic technique. Blood eh3 collected. 11:25 Christal Stringer, RN is Primary Nurse. eh3 11:26 Flu Sent. eh3 11:26 SARS RAPID Sent. eh3 11:26 Blood Culture Adult (2) Sent. eh3 11:26 Lipase Sent. eh3 11:36 XRAY Chest (1 view) In Process Unspecified. EDMS 11:45 CT Abd/Pelvis - Without Contrast In Process Unspecified. EDMS 13:21 Raj Hidalgo MD is Hospitalizing Provider. bridget 13:58 Raj Hidalgo MD is Hospitalizing Provider. bridget 15:51 No provider procedures requiring assistance completed. Patient admitted, IV remains in eh3 place. Administered Medications: 11:30 Drug: NS 0.9% IV 1000 ml Route: IV; Rate: 1 bolus; Site: left antecubital; eh3 15:32 Follow up: IV Status: Completed infusion; IV Intake: 1000ml eh3 12:45 Drug: Piperacillin-Tazobactam IVPB 3.375 grams Route: IVPB; Infused Over: 60 mins; eh3 Site: left antecubital; 13:45 Follow up: Response: No adverse reaction; IV Status: Completed infusion; IV Intake: eh3 100ml 12:50 Drug: NS 0.9% IV 1000 ml Route: IV; Rate: 1 bolus; Site: left antecubital; 3 15:51 Follow up: IV Status: Completed infusion; IV Intake: 1000ml eh3 12:50 Drug: Famotidine IVP 20 mg Route: IVP; Site: left antecubital; eh3 13:50 Follow up: Response: No adverse reaction eh3 Medication: 15:51 VIS not applicable for this client. eh3 Intake: 13:45 IV: 100ml; Total: 100ml. eh3 15:32 IV: 1000ml; Total: 1100ml. eh3 15:51 IV: 1000ml; Total: 2100ml. 3 Outcome: 13:24 Decision to Hospitalize by Provider. [facility] 13:59 Decision to Hospitalize by Provider. [facility] 15:51 Patient left the ED. 3 15:52 Admitted to Med/surg accompanied by tech, family with patient, via wheelchair, room eh3 211, Report called to Claribel 15:52 Condition: stable 15:52 Instructed on the need for admit. Signatures: Dispatcher [employer] Caden Silverio MD MD cha Rivera, Mary mr Blanchard, Shelby, JIMMY MARQUEZ Christal Stringer RN RN 3 Corrections: (The following items were deleted from the chart) 15:55 13:00 BP 177 / 87; Pulse 87bpm; Resp 20bpm; Pulse Ox 97% RA; eh3 eh3
--- NOTE | 2022-12-03 13:25 | EDPHYS ---
Physician Documentation [facility] Name: Jonnie Haney Age: 77 yrs Sex: Male : 1945 Arrival Date: 12/03/2022 Time: 10:41 Bed 17 Private MD: Luke [facility] ED Physician Caden Lazar HPI: 12/03 11:36 This 77 yrs old Male presents to ER via Wheelchair with complaints of bridget Weakness. 11:36 The patient presents to the emergency department with weakness of the entire body, bridget generalized weakness. Onset: The symptoms/episode began/occurred 3 day(s) ago. Historical: - Allergies: 11:00 No Known Allergies; ss - Home Meds: 15:51 amlodipine 5 mg tablet daily [Active]; clonidine HCl 0.2 mg Oral tablet 2 times per day eh3 [Active]; losartan 100 mg Oral tablet daily [Active]; metformin 500 mg Oral Tablet, ER Gastric Retention 24 hr every evening [Active]; - PMHx: 11:00 diabetes mellitus; Hypertensive disorder; ss - Immunization history:: Client reports receiving the 2nd dose of the Covid vaccine. - Social history:: Smoking status: Patient reports the use of cigarette tobacco products, smokes two packs cigarettes per day. - Family history:: not pertinent. ROS: 11:36 Constitutional: Negative for fever, chills, and weight loss, Eyes: Negative for injury, bridget pain, redness, and discharge, ENT: Negative for injury, pain, and discharge, Neck: Negative for injury, pain, and swelling, Cardiovascular: Negative for chest pain, palpitations, and edema, Respiratory: Negative for shortness of breath, cough, wheezing, and pleuritic chest pain, Back: Negative for injury and pain, : Negative for injury, bleeding, discharge, and swelling, MS/Extremity: Negative for injury and deformity, Skin: Negative for injury, rash, and discoloration, Psych: Negative for depression, anxiety, suicide ideation, homicidal ideation, and hallucinations, Allergy/Immunology: Negative for hives, rash, and allergies, Endocrine: Negative for neck swelling, polydipsia, polyuria, polyphagia, and marked weight changes, Hematologic/Lymphatic: Negative for swollen nodes, abnormal bleeding, and unusual bruising. 11:36 Abdomen/GI: Positive for anorexia. 11:36 Neuro: Positive for weakness. Exam: 11:36 Constitutional: This is a well developed, well nourished patient who is awake, alert, bridget and in no acute distress. Head/Face: Normocephalic, atraumatic. Eyes: Pupils equal round and reactive to light, extra-ocular motions intact. Lids and lashes normal. Conjunctiva and sclera are non-icteric and not injected. Cornea within normal limits. Periorbital areas with no swelling, redness, or edema. ENT: Nares patent. No nasal discharge, no septal abnormalities noted. Tympanic membranes are normal and external auditory canals are clear. Oropharynx with no redness, swelling, or masses, exudates, or evidence of obstruction, uvula midline. Mucous membranes moist. Neck: Trachea midline, no thyromegaly or masses palpated, and no cervical lymphadenopathy. Supple, full range of motion without nuchal rigidity, or vertebral point tenderness. No Meningismus. Chest/axilla: Normal chest wall appearance and motion. Nontender with no deformity. No lesions are appreciated. Cardiovascular: Regular rate and rhythm with a normal S1 and S2. No gallops, murmurs, or rubs. Normal PMI, no JVD. No pulse deficits. Respiratory: Lungs have equal breath sounds bilaterally, clear to auscultation and percussion. No rales, rhonchi or wheezes noted. No increased work of breathing, no retractions or nasal flaring. Abdomen/GI: Soft, non-tender, with normal bowel sounds. No distension or tympany. No guarding or rebound. No evidence of tenderness throughout. Back: No spinal tenderness. No costovertebral tenderness. Full range of motion. Male : Normal genitalia with no discharge or lesions. Skin: Warm, dry with normal turgor. Normal color with no rashes, no lesions, and no evidence of cellulitis. MS/ Extremity: Pulses equal, no cyanosis. Neurovascular intact. Full, normal range of motion. Neuro: Awake and alert, GCS 15, oriented to person, place, time, and situation. Cranial nerves II-XII grossly intact. Motor strength 5/5 in all extremities. Sensory grossly intact. Cerebellar exam normal. Normal gait. Psych: Awake, alert, with orientation to person, place and time. Behavior, mood, and affect are within normal limits. 11:36 ECG was reviewed by the Attending Physician. Vital Signs: 10:59 BP 143 / 85; Pulse 94; Resp 16; Temp 97.5(TE); Pulse Ox 96% on R/A; Weight 80.29 kg; ss Height 5 ft. 9 in. ; Pain 0/10; 11:00 BP 115 / 103; Pulse 98; Resp 20; Pulse Ox 96% on R/A; eh3 12:00 BP 166 / 82; Pulse 67; Resp 17; Pulse Ox 97% on R/A; eh3 13:00 BP 177 / 87; Pulse 87; Resp 20; Temp 98.9(O); Pulse Ox 97% on R/A; eh3 14:00 BP 171 / 85; Pulse 88; Resp 19; Pulse Ox 95% on R/A; eh3 15:00 BP 175 / 85; Pulse 83; Resp 17; Pulse Ox 95% on R/A; eh3 10:59 Body Mass Index 26.14 (80.29 kg, 175.26 cm) ss 10:59 Pain Scale: Adult ss MDM: 10:46 Patient medically screened. bridget 11:40 Differential Diagnosis sepsis, flu. Differential diagnosis: bowel obstruction, bridget gastritis, non-specific abd pain, pancreatitis, urinary tract infection. Data reviewed: vital signs, nurses notes, lab test result(s), EKG, radiologic studies, CT scan, plain films. Consideration of Admission/Observation Escalation of care including admission/observation considered. I considered the following discharge prescriptions or medication management in the emergency department Medications were administered in the Emergency Department. See MAR. Independent interpretation of the following test(s) in the Emergency Department EKG: See my EKG interpretation above. Test considered but Not performed: Ultrasound NO ABD USG. Care significantly affected by the following chronic conditions: Diabetes, Hypertension. 12/03 10:52 Order name: Basic Metabolic Panel; Complete Time: 13:19 bridget 12/03 10:52 Order name: CBC with Diff; Complete Time: 13:12/03 10:52 Order name: LFT's; Complete Time: 13:19 12/03 10:52 Order name: Magnesium; Complete Time: 13:19 12/03 10:52 Order name: NT PRO-BNP; Complete Time: 13:19 12/03 10:52 Order name: PT-INR; Complete Time: 13:12/03 10:52 Order name: Troponin HS; Complete Time: 13:19 [facility] 12/03 10:52 Order name: Lipase; Complete Time: 13:19 [facility] 12/03 10:52 Order name: Blood Culture Adult (2) [facility] 12/03 10:52 Order name: Lactate w/ 2H reflex if indic.; Complete Time: 13:19 [facility] 12/03 10:52 Order name: Urinalysis w/ reflexes [facility] 12/03 10:52 Order name: SARS RAPID; Complete Time: 13:19 [facility] 12/03 10:52 Order name: Flu; Complete Time: 13:19 [facility] 12/03 13:45 Order name: CBC with Automated Diff [facility] 12/03 13:45 Order name: Comprehensive Metabolic Panel [facility] 12/03 14:43 Order name: Lactate Sepsis 2 HR Follow-up [facility] 12/03 10:52 Order name: XRAY Chest (1 view); Complete Time: 13:19 [facility] 12/03 11:26 Order name: CT Abd/Pelvis - Without Contrast; Complete Time: 13:19 [facility] 12/03 10:52 Order name: EKG; Complete Time: 10:53 [facility] 12/03 13:45 Order name: CONS Physician Consult [facility] 12/03 13:45 Order name: NPO EDMA 12/03 10:52 Order name: Cardiac monitoring; Complete Time: 11:25 [facility] 12/03 10:52 Order name: EKG - Nurse/Tech; Complete Time: 11: [facility] 12/03 10:52 Order name: IV Saline Lock; Complete Time: 11: [facility] 12/03 10:52 Order name: Labs collected and sent; Complete Time: 11: [facility] 12/03 10:52 Order name: O2 Per Protocol; Complete Time: 11: [facility] 12/03 10:52 Order name: O2 Sat Monitoring; Complete Time: 11: [facility] EC:36 Rate is 93 beats/min. Rhythm is regular. QRS [place] is Normal. [place] interval is normal. QRS bridget interval is normal. QT interval is normal. No Q waves. T waves are Normal. No ST changes noted. Clinical impression: NSR w/ Non-specific ST/T Changes and No evidence of ischemia. Interpreted by me. Reviewed by me. Administered Medications: 11:30 Drug: NS 0.9% IV 1000 ml Route: IV; Rate: 1 bolus; Site: left antecubital; 3 15:32 Follow up: IV Status: Completed infusion; IV Intake: 1000ml 3 12:45 Drug: Piperacillin-Tazobactam IVPB 3.375 grams Route: IVPB; Infused Over: 60 mins; 3 Site: left antecubital; 13:45 Follow up: Response: No adverse reaction; IV Status: Completed infusion; IV Intake: eh3 100ml 12:50 Drug: NS 0.9% IV 1000 ml Route: IV; Rate: 1 bolus; Site: left antecubital; 3 15:51 Follow up: IV Status: Completed infusion; IV Intake: 1000ml 3 12:50 Drug: Famotidine IVP 20 mg Route: IVP; Site: left antecubital; 3 13:50 Follow up: Response: No adverse reaction 3 Disposition Summary: 12/03/22 13:59 Hospitalization Ordered Hospitalization Status: Inpatient Admission(12/03/22 13:59) bridget Provider: Raj Hidalgo(12/03/22 13:59) bridget Location: Telemetry/MedSurg (Inpatient)(12/03/22 13:59) bridget Condition: Fair(12/03/22 13:59) bridget Problem: new(12/03/22 13:59) bridget Symptoms: have improved(12/03/22 13:59) bridget Bed/Room Type: Standard(12/03/22 13:59) bridget Room Assignment: 211(12/03/22 15:08) eb Diagnosis - Weakness(12/03/22 13:59) bridget - Abdominal pain, unspecified bridget - Anorexia(12/03/22 13:59) bridget - Other and unspecified intestinal obstruction - DISTAL SMALL BOWEL bridget Forms: - Medication Reconciliation Form bridget - SBAR form bridget Signatures: Dispatcher [employer] Caden Silverio MD MD cha Blanchard, Shelby, RN RN Courtney Alonso Erin, RN RN 3 Corrections: (The following items were deleted from the chart) 13:57 13:24 Inpatient Admission bridget bridget 13:57 13:24 Raj Hidalgo cha bridget 13:57 13:24 Telemetry/MedSurg (Inpatient) bridget bridget 13:57 13:24 Fair bridget bridget 13:57 13:24 new bridget bridget 13:57 13:24 have improved [facility] 13:57 13:24 Standard [facility] 13:57 13:24 bridget [facility] 13:57 13:24 Weakness [facility] 13:57 13:24 Other intestinal obstruction - DISTAL SMALL BOWEL [facility] 13:57 13:24 Anorexia [facility] 13:57 13:24 Abnormal finding of blood chemistry, unspecified - ELEVATED LACTATE [facility] 14:00 13:47 Abdomen/GI: Bowel sounds: normal, Palpation: soft, nontender, Rectal exam: Stool: [facility] black, hemorrhoid(s), are not appreciated, mass, is not appreciated, swelling, is not appreciated, tenderness, is not appreciated, fecal impaction, is not appreciated, the exam is chaperoned by a family member, Liver: no appreciated palpable abnormalities, Hernia: not appreciated, [facility] 15:08 13:59 [facility]
[2022-12-03] MEDS ORDERED: MORPHINE 2 MG/ML SYR IV PRN (13:41)
[2022-12-03] MEDS ORDERED: ONDANSETRON 4 MG/2 ML VIAL IV PRN (13:41)
[2022-12-03] MEDS: NA CHLORIDE 0.9% 1,000 ML IV SCH (14:00)
[2022-12-03 14:15] LABS: Urine Bacteria None Seen /HPF (<20); Urine Bilirubin NEGATIVE (Negative); Urine Blood Negative (Negative); Urine Clarity Turbid (Clear); Urine Color Yellow (Yellow); Urine Glucose NEGATIVE (Negative); Urine Mucus Slight /HPF (None Seen); Urine Protein NEGATIVE (Negative); Urine RBC <5 /HPF (None Seen); Urine Urobilinogen Normal (Normal); Urine pH 6.5 (5.0-7.0)
--- NOTE | 2022-12-03 14:31 | P.HP ---
Certification for Inpatient With expected LOS: >2 Midnights Practitioner: I am a practitioner with admitting privileges, knowledge of patient current condition, hospital course, and medical plan of care. Services: Services provided to patient in accordance with Admission requirements found in Title 42 Section 412.3 of the Code of Federal Regulations Patient History Date of Service: 12/03/22 Reason for admission: Small bowel obstruction History of Present Illness: Kidney 77 years of age admitted with small bowel obstruction complaining of abdominal distention vomiting feeling very weak apparently this started last Tuesday [facility] came back again ending of some diarrhea/. Allergies No Known Allergies Allergy (Unverified 12/03/22 14:28) - Past Medical/Surgical History -: History of small bowel obstruction -: Diabetes -: History of prostatic cancer radiation -: Colon surgery Review of Systems 10-point ROS is otherwise unremarkable General: Weakness Gastrointestinal: Nausea, Vomiting, Diarrhea, Distention Physical Examination - Vital Signs Temperature: 7.5 F Blood Pressure: 143/85 Pulse: 94 Respirations: 16 Pulse Ox (%): 96 - Physical Exam General: Alert, In no apparent distress, Oriented x3 HEENT: Atraumatic Neck: Supple Respiratory: Clear to auscultation bilaterally Cardiovascular: No edema, Regular rate/rhythm, Normal S1 S2 Gastrointestinal: Normal bowel sounds, Soft and benign, No ascites, Distended Musculoskeletal: No swelling, No contractures, No erythema Neurological: Normal gait, Normal strength at 5/5 x4 extr - Studies Laboratory Data (last 24 hrs) 12/03/22 11:18: PT 10.6, INR 0.88 12/03/22 11:18: WBC 6.90, Hgb 13.3 L, Hct 40.4, Plt Count 244 12/03/22 11:18: Sodium 136, Potassium 3.6, BUN 25 H, Creatinine 1.13, Glucose 139 H, Magnesium 2.3, Total Bilirubin 1.2 H, AST 20, ALT 36, Alkaline Phosphatase 62, Lipase 52 Microbiology Data (last 24 hrs): 12/03/22 11:11 Nasopharnyx Influenza Type A Antigen Screen - Final 12/03/22 11:11 Nasopharnyx Influenza Type B Antigen Screen - Final Assessment and Plan - Problems (Diagnosis) (1) Small bowel obstruction Current Visit: Yes Status: Acute Plan: Patient is 77 years of age readmitted with small bowel obstruction by CT scan at previous colonic surgery and radiation to his prostate admitted to the hospital n.p.o. the gastric tube continuous suction Labs reviewed white count is normal lactic acid is mildly elevated mildly anemic consult general surgery - Advance Directives Does patient have a Living Will: No Does patient have a Durable POA for Healthcare: No
[2022-12-03 14:35] VITALS: BMI 26.1
[2022-12-03 15:59] VITALS: O2SAT 97
[2022-12-03] MEDS: PIPER TAZO 3.375 GM in NA CHLORIDE 0.9% 100 ML IV SCH (16:23)
[2022-12-03 16:48] LABS: Hematocrit 41.2 % (39.6-49.0); Lymphocytes % 13.7 % (15.3-44.8); MCV 90.6 fL (80-100); MPV 8.1 fL (7.6-11.3); RBC Red Blood Cell Count 4.54 M/uL (4.33-5.43)
[2022-12-03 16:51] LABS: Albumin 2.8 g/dL (3.4-5.0); Protein, Total 6.6 g/dL (6.4-8.2)
[2022-12-03] MEDS: HEPARIN 5000 UNIT/ML 1 ML VIAL SQ SCH (18:03)
[2022-12-03] MEDS: INSULIN -REGULAR HUMAN 50 UNIT/0.5 ML ML SQ SCH (20:15)
--- NOTE | 2022-12-03 21:46 | CON ---
Date of Consultation: 12/03/2022 Brief History Of Present Illness: The patient is a 77-year-old male who was recently seen at this [facility] here with complaints of abdominal pain, was transferred to the [place] for care as he is [place] patie [place]. Ultimately, he states he was put in the hospital for a short period of time, where he was diagno sed with a bowel obstruction. Ultimately discharged and developed worsening abdominal pain several d ays later, which would be Tuesday of this last week, today being Tuesday. He states that the pain got progressively worse and as such when the things continued to worsen, he had nausea, vomiting, decrea sed bowel function. He came to the emergency room with the above-stated complaints. He does have a history of bowel obstruction before in the past and states this feels similar to his previous episode s of bowel obstructions. Since being in the hospital, he has had bowel movements and has significant improvement of his pain symptoms and has no nausea or vomiting since being at the hospital. Past Medical History: Significant for small bowel obstructions in the past, diabetes, and prostate c ancer treated with radiation. He has had colon cancer. Past Surgical History: Includes partial colectomy with colostomy formation and laparoscopic colostom y takedown, less than a year ago. He has not had a colonoscopy since his colostomy takedown. Allergies: NO KNOWN DRUG ALLERGIES. Social History: He denies smoking, alcohol, recreational drug use. Review of Systems: Ten-point review of systems other than HPI, he denies currently other than weakness and fatigue. Physical Examination: Vital Signs: At time of my examination, his blood pressure 166/82, pulse 67, respiratory rate 17, te mperature 97.5, SpO2 96% on room air. General: He is awake, alert, and oriented. Psychiatric: He is appropriate and conversive. HEENT: He is normocephalic. Sclerae anicteric. Mucous membranes are moist. Oropharynx clear. Neck: Supple without JVD. Chest: Normal expansion and excursion. Cardiovascular: Regular rate and rhythm. Pulmonary: Clear to auscultation bilaterally. Abdomen: Soft, nontender, nondistended. No rebound. No guarding. No focal peritonitis. He has we ll-healed surgical scars and a well-healed surgical colostomy site on the right lower quadrant. Extremities: No clubbing, cyanosis, edema. Skin: Warm and dry. Laboratory Data: Revealed a white blood cell count of 7.1, hemoglobin 13.1, hematocrit of 41.2, plat elet count is 143, neutrophils 74%. His sodium 136, potassium 3.0, chloride 104, carbon dioxide 23, BUN 24, creatinine 0.8, glucose is 114. His lactic acid was 2.7 on admission, now 1.2; calcium 8.3; total bilirubin is 1.0. His AST 19, ALT 30, alkaline phosphatase is 52. His lipase was 52 on admiss ion. UA is essentially negative. He had imaging performed, which included a CT of the abdomen and p jeancarlos, officially read as proximal small-bowel dilatation with relatively abrupt transition to nondis tended small bowel in the posterior central to lower abdomen concerning for small bowel obstruction. Tiny right renal nonobstructing calculi. Assessment And Plan: This is a 77-year-old male who comes in with evidence of a partial small bowel obstruction. 1.IV fluid hydration. 2.N.p.o. status. 3.Serial abdominal exams. 4.Medical management. 5.I have explained operative versus nonoperative management. We will try nonoperative management as patient has no significant abdominal findings and is currently feeling improved. As such, we will c ontinue serial exams; however, I have discussed that if his condition does not progress in a positive way, we will likely consider surgical intervention. I have discussed risks, benefits, and alternati ves of surgical intervention including but not limited to bleeding, infection, damage to surrounding tissues, need for further operative procedure. Patient agrees to proceed as indicated. NIKO/CHIARA Voice ID: [id number] Report ID: [id number]
[2022-12-03 21:59] LABS: Blood Morphology Comment NOTED (NOT SEEN); Polychromasia SLIGHT
[2022-12-03 22:00] LABS: Platelet Estimate ADEQ
[2022-12-03] MEDS: cloNIDine HCL 0.1 MG TAB PO SCH (22:10)
[2022-12-04] MEDS: HEPARIN 5000 UNIT/ML 1 ML VIAL SQ SCH ×2 (00:26→08:44)
[2022-12-04] MEDS: NA CHLORIDE 0.9% 1,000 ML IV SCH ×2 (01:14→11:03)
[2022-12-04] MEDS: PIPER TAZO 3.375 GM in NA CHLORIDE 0.9% 100 ML IV SCH ×2 (01:14→08:45)
[2022-12-04 03:19] LABS: Absolute Lymphocytes (CBC) 0.9 K/uL (0.7-4.9); Hematocrit 34.4 % (39.6-49.0); Lymphocytes % 14.7 % (15.3-44.8); MCV 88.6 fL (80-100); MPV 7.5 fL (7.6-11.3); RBC Red Blood Cell Count 3.89 M/uL (4.33-5.43)
[2022-12-04 03:37] LABS: Phosphorus 2.8 mg/dL (2.5-4.9); Potassium 2.9 mEq/L (3.5-5.1)
[2022-12-04] MEDS: KCL 20 MEQ/100 mL IVPB 20 MEQ/100 ML BAG IV SCH ×3 (05:24→11:02)
[2022-12-04] MEDS: INSULIN -REGULAR HUMAN 50 UNIT/0.5 ML ML SQ SCH ×2 (07:30→11:30)
[2022-12-04] MEDS: cloNIDine HCL 0.1 MG TAB PO SCH (08:44)
[2022-12-04] MEDS ORDERED: ATORVASTATIN 20 MG TAB PO SCH (09:00)
[2022-12-04] MEDS ORDERED: ZINC SULFATE 220 MG CAP PO SCH (09:00)
[2022-12-04] MEDS ORDERED: LOSARTAN POTASSIUM 50 MG TABLET PO SCH (09:00)
[2022-12-04] MEDS ORDERED: CALCIUM CARBONATE 500 MG TAB PO SCH ×2 (09:00)
[2022-12-04] MEDS ORDERED: ASPIRIN EC 81 MG TAB PO SCH (09:00)
[2022-12-04] MEDS ORDERED: PRENATAL VITAMIN PO SCH ×2 (09:00→12:00)
[2022-12-04] MEDS ORDERED: VITAMIN B COMPLEX 1 CAP PO SCH (09:00)
[2022-12-04] MEDS ORDERED: TAMSULOSIN 0.4 MG SR CAP PO SCH (09:00)
[2022-12-04] MEDS ORDERED: AMLODIPINE 5 MG TAB PO SCH (09:00)
[2022-12-04] MEDS ORDERED: hydroCHLOROthiazide 25 MG TAB PO SCH (09:00)
[2022-12-04 12:41] VITALS: BP 146/77; TEMP 97.9
--- NOTE | 2022-12-04 16:07 | P.DS ---
Discharge Date: 12/04/22 Disposition: ROUTINE DISCHARGE Discharge Condition: GOOD Reason for Admission: Small bowel obstruction Brief History of Present Illness: Pt is a 77-year-old gentleman who was admitted to the hospital with abdominal pain. Patient was found to have small bowel obstruction. Patient recently had abdominal surgery for questionable colorectal carcinoma. Patient had a partial resection. Has been doing well and he does not remember eating anything unusual. He started having severe abdominal pain so he came to the ER. In the ER CT scan revealed small bowel obstruction so patient was admitted for further monitoring. Hospital Course: Patient improved quicker than expected. Patient's obstruction has resolved. Patient's CAT scan showed small bowel obstruction but he started moving his bowels this morning and had a large bowel movement. We started him on a diet and we have advanced it. Patient clinically is doing well and stable for discharge home. Vital Signs/Physical Exam: Temp Pulse Resp BP Pulse Ox 97.9 F 67 16 146/77 H 94 12/04/22 12:00 12/04/22 12:00 12/04/22 12:00 12/04/22 12:00 12/04/22 12:00 General: Alert, In no apparent distress, Oriented x3 Laboratory Data at Discharge: WBC 6.00 thou/uL (4.3-10.9) 12/04/22 02:58 Hgb 11.5 g/dL (13.6-17.9) L D 12/04/22 02:58 Hct 34.4 % (39.6-49.0) L 12/04/22 02:58 Plt Count 187 thou/uL (152-406) D 12/04/22 02:58 PT 10.6 SECONDS (9.2-12.8) 12/03/22 11:18 INR 0.88 12/03/22 11:18 Sodium 139 mEq/L (136-145) D 12/04/22 02:58 Potassium 3.5 mEq/L (3.5-5.1) D 12/04/22 14:52 BUN 19 mg/dL (7-18) H 12/04/22 02:58 Creatinine 0.81 mg/dL (0.70-1.30) 12/04/22 02:58 Glucose 106 mg/dL (74-106) 12/04/22 02:58 Phosphorus 2.8 mg/dL (2.5-4.9) 12/04/22 02:58 Magnesium 2.0 mg/dL (1.6-2.4) 12/04/22 02:58 Total Bilirubin 1.0 mg/dL (0.2-1.0) 12/03/22 16:16 AST 19 U/L (15-37) 12/03/22 16:16 ALT 30 U/L (16-61) 12/03/22 16:16 Alkaline Phosphatase 52 U/L (45-117) 12/03/22 16:16 Lipase 52 U/L (13-75) 12/03/22 11:18 Home Medications: Amlodipine Besylate 5 mg PO DAILY 12/03/22 Ascorbic Acid [Vitamin C] 1,000 mg PO DAILY 12/03/22 Aspirin [Aspirin EC 81 MG] 81 mg PO DAILY 12/03/22 Atorvastatin Calcium 20 mg PO DAILY 12/03/22 Calcium Carbonate [Calcium] 1,200 mg PO DAILY 12/03/22 Clonidine HCl [Catapres*] 0.2 mg PO BID 12/03/22 Ferrous Fumarate/Vit Bcomp&C [Super B-Complex Caplet] 1 each PO DAILY 12/03/22 Losartan Potassium [Cozaar] 100 mg PO DAILY 12/03/22 Metformin HCl 500 mg PO DAILY 12/03/22 Vitamin [ VITAMIN*] 1 tab PO DAILY 12/03/22 Tamsulosin HCl 0.4 mg PO DAILY 12/03/22 Zinc Gluconate [Zinc] 50 mg PO DAILY 12/03/22 hydroCHLOROthiazide [Hydrochlorothiazide] 25 mg PO DAILY 12/03/22 Cefdinir [Cefdinir*] 300 mg PO BID #14 cap 12/04/22 metroNIDAZOLE [Flagyl] 500 mg PO Q8H #20 tab 12/04/22 New Medications: Cefdinir [Cefdinir*] 300 mg PO BID #14 cap metroNIDAZOLE [Flagyl] 500 mg PO Q8H #20 tab Physician Discharge Instructions: -DC IV and DC home -Follow-up with PCP in 1 to 2 weeks -Follow-up with Surgery in 1 to 2 weeks as needed -Follow-up with GI in 1 to 2 weeks as needed -Please call Dr. Head at [phone] if any questions regarding hospital stay -Please call nursing station at [phone] if any nursing or medication questions -Return to the emergency room if symptoms worsen Diet: soft diet Activity: Fall precautions Time spent managing pt's care (in minutes): 35
[2022-12-05] MEDS ORDERED: PRENATAL VITAMIN PO SCH (09:00)
--- NOTE | 2022-12-05 11:20 | EKG ---
Test Date: 2022-12-03 Test Time: 11:02:57 Revit Drafter: JANETT MEASUREMENT RESULTS: Intervals: Rate: 93 AR: 158 QRSD: 146 QT: 410 QTc: 509 Bally: P: 37 AR: 158 QRS: -72 T: 28 INTERPRETIVE STATEMENTS: Sinus rhythm with premature supraventricular complexes Possible Left atrial enlargement Right bundle branch block Left anterior fascicular block Bifascicular block Septal infarct, age undetermined Abnormal ECG Compared to ECG 11/30/2022 16:08:26 Atrial premature complex(es) now present Myocardial infarct finding now present Bifascicular block still present Electronically Signed On 12-05-22 11:17:40 CDT by Bryan Mcrae
== END 2022-12-04 16:27 | disposition home or self-care (01) | DRG 390 ==
LOC: ER 10:41 → ERHOLD 13:41 → 2ND 15:33
PROVIDERS: ADMIT Internal Medicine Sleep Medicine; ATTEND Hospitalist
DX: K56.609 Unspecified intestinal obstruction, unspecified as to partial versus complete obstruction (principal); R19.7 Diarrhea, unspecified; R53.1 Weakness; I10 Essential (primary) hypertension; E11.9 Type 2 diabetes mellitus without complications; N20.0 Calculus of kidney; R63.0 Anorexia; Z68.26 Body mass index [BMI] 26.0-26.9, adult; Z98.890 Other specified postprocedural states; Z85.038 Personal history of other malignant neoplasm of large intestine; Z85.46 Personal history of malignant neoplasm of prostate; Z79.899 Other long term (current) drug therapy; F17.210 Nicotine dependence, cigarettes, uncomplicated; Z20.822 Contact with and (suspected) exposure to COVID-19; Z90.49 Acquired absence of other specified parts of digestive tract
CPT/HCPCS: 36415; 71045; 74176; 74177; 80048; 80053; 80076; 81001; 82947; 83605; 83690; 83735; 83880; 84100; 84132; 84443; 84484; 85025; 85610; 87040; 87804; 87811; 93005; 96361; 96365; 96374; 96375; 99284; 99285; J1644; J2270; J2543; J3480; J7030; Q9967